=== PATIENT | female | born 1995 | race Caucasian/White ===

== ENCOUNTER 2018-05-23 17:38 | Emergency (ER) | payer OTHER, BC, SELFPAY ==
[2018-05-23 17:39] VITALS: BP 117/60; PULSE 84; RESP 14; TEMP 36.3; O2SAT 100; BMI 29.5
--- NOTE | 2018-05-23 17:49 | ED.VISSUMM ---
- ER Visit Summary Date of Service: 05/23/18 Chief Complaint: Nausea, vomiting History of Present Illness: The patient is a 22 F presents to the emergency department nausea and vomiting. Patient states that she went to the dentist about 4 days ago. She had an ulcer in her mouth. She was started on Tylenol with codeine and Magic mouthwash. She states she has been increasingly nauseated with upper abdominal cramping. She said a few bouts of vomiting. She states that today, she got out of her car quickly, got diaphoretic, tunnel vision, and passed out. She states she does have a history of syncope. She denies any chest pain shortness of breath. She states the pain comes in waves. She denies any heavy vaginal bleeding or other systemic symptoms. Physical Examination: Vital signs reviewed General: Well-nourished, well-developed Head: Normocephalic, atraumatic Eyes: Pupils equal and reactive, extraocular muscles intact Neck, supple, no lymphadenopathy Heart: Regular rate and rhythm Respiratory: No distress, clear bilaterally Abdomen: Soft, nontender, nondistended, no peritoneal signs Back: Nontender Extremities: Nontender, no edema, no cords Skin: Normal color no rash Neuro: Alert and oriented, no focal or lateralizing deficits Test Results: [] Emergency Department Course and Treatment: The patient has a benign abdomen. I do feel that her syncope is vasovagal in nature. She was given IV fluids. Screening labs were obtained were unremarkable. Urine shows no evidence of infection. The patient is . I did discuss this with the patient. She will be started on antiemetics and vitamins. She has no pain in her lower abdomen that makes me concerned for ectopic. She states that she had 2- tests at home 3 days ago. I do feel that this is likely early. She will be given outpatient ENVIRONMENTAL REMEDIATION CONSULTANT follow-up and will be discharged home. Treatment Plan: [] Disposition: Discharge Impression: 1. Hyperemesis 2. This note was generated with [employer] dictation software. It may contain incorrect words, spelling, and punctuation that were not noted in review of the chart prior to signing ED Disposition - Plan for ED Patient: Chief Complaint: Nausea/Vomiting Instructions: ED Preg Morning Sickness, ED Nausea Vomiting Prescriptions: Ondansetron [Zofran Odt] 4 mg PO Q8H PRN PRN #10 tab PRN Reason: Nausea Vits [Prenatabs FA] 1 tab PO DAILY #90 tab Referrals: Marlin Nieves MD [STAFF PHYSICIAN] -
[2018-05-23] MEDS: 0.9% Normal Saline 1,000 ML 1000 ML IV (17:59)
[2018-05-23] MEDS: Ondansetron 4 MG/2 ML Vial IV (17:59)
[2018-05-23 18:18] LABS: Red Blood Cells-Urine 0 SEEN /hpf (0-5)
[2018-05-23 18:20] LABS: Absolute Lymphocyte Count 1.83 X10^3/ul (0.83-4.51); Absolute Neutrophil Count 6.2 X10^3/uL (2.0-7.7); Basophil# 0.02 X10^3/uL; Basophil% 0.2 % (0-1); Eosinophil# 0.16 X10^3/uL; Eosinophils% 1.8 % (0-5); Hematocrit 39.6 % (37-47); Hemoglobin 13.7 g/dl (12.0-15.0); Lymphocyte # 1.83 X10^3/ul (4.0); Lymphocyte % 20.1 % (19-41); Mean Corp Hgb Conc 34.6 g/gl (32-36); Mean Corpuscular Hgb 32.5 pg (27.0-32.0); Mean Corpuscular Volume 93.8 fL (81-99); Mean Platelet Vol. 10.5 fl (6.2-12.0); Monocyte# 0.93 X10^3/uL; Monocyte% 10.2 % (0-10); Neutrophil # 6.15 X10^3/uL (2.7-7.7); Neutrophil % 67.5 % (47-70); Platelet Count 232 K/mm3 (150-450); RBC Distribution Width CV 12.9 % (11.6-14.6); RBC Distribution Width SD 44.4 fl (35.1-43.9); Red Blood Count 4.22 M/mm3 (4.2-5.4); White Blood Count 9.1 K/mm3 (4.4-11.0)
[2018-05-23 18:23] LABS: Differential Indicated SCAN CRITERIA MET; POSITIVE COUNT NO; POSITIVE DIFFERENTIAL NO; POSITIVE MORPHOLOGY YES
[2018-05-23 18:29] LABS: ALB/GLOB Ratio 0.7 RATIO (0.9-2.4); AST(SGOT) 33 U/L (15-37); Alanine Aminotransfer ALT/SGPT 14 U/L (13-56); Albumin, Serum 3.1 g/dL (3.2-5.0); Alkaline Phosphatase 76 U/L (45-117); Anion Gap 6 (5-15); BUN 8 mg/dL (7-18); BUN/Creat Ratio 14.2 RATIO (10-20); Calcium,Total 8.3 mg/dL (8.5-10.1); Chloride 108 mmol/L (98-107); Creatinine, Serum 0.56 mg/dL (0.55-1.02); EST Glomerular Filtration Rate 144 mL/min (>60); Est Glom Filt Rate - Afr Amer 175 mL/min (>60); Estimated Creatinine Clearance 150.01 ml/min; Globulin 4.2 g/dL (2.2-4.2); Glucose 69 mg/dL (74-106); Lipase 111 U/L (73-393); Potassium 4.7 mmol/L (3.5-5.1); Protein, Total 7.3 g/dL (6.4-8.2); Sodium Level 137 mmol/L (136-145)
[2018-05-23 18:34] LABS: Color, Urine Yellow (Yellow); Glucose, Dipstick Normal (Normal); Ketone-Dipstick 5 mg/dl (Negative); Leukocyte Esterase-Dipstick 25 /ul (Negative); Nitrite-Dipstick Negative (Negative); Occult Blood-Urine Negative /ul (Negative); Protein-Dipstick Negative (Negative); Urine Bilirubin Dipstick Negative (Negative); Urine Clarity Sl. Cloudy (Clear); Urine Urobilinogen Normal (Normal)
[2018-05-23 18:38] LABS: Internal QC Validated? YES +Cl - CLEAR BKGD; Pregnancy, Urine Positive Negative
--- NOTE | 2018-05-23 18:38 | ED.RN ---
pos preg called from the lab dr kidd
[2018-05-23 18:43] LABS: Anisocytosis RARE; Macrocytosis RARE; Platelet Estimate ADEQUATE (ADEQ)
[2018-05-23 18:53] LABS: Bacteria RARE /hpf (None Seen); Mucous, Urine RARE /hpf (<or=2+); Squamous Epithelial Cells - UA 5-10 SEEN /hpf (5-10); White Blood Cells 0-5 SEEN /hpf (0-5)
[2018-05-23 19:22] VITALS: BP 123/68; PULSE 73; RESP 16; O2SAT 100
[2018-05-24 11:06] LABS: Pathologist Review Reviewed
== END 2018-05-23 19:23 | disposition home or self-care (01) ==
LOC: ED 18:42
PROVIDERS: Emergency Provider Emergency Medicine; Family Provider Pediatrics; PCP Pediatrics
DX: O26.899 Other specified pregnancy related conditions, unspecified trimester (principal); R11.2 Nausea with vomiting, unspecified; R10.10 Upper abdominal pain, unspecified; O99.89 Other specified diseases and conditions complicating pregnancy, childbirth and the puerperium; R55 Syncope and collapse; O99.330 Smoking (tobacco) complicating pregnancy, unspecified trimester; F17.200 Nicotine dependence, unspecified, uncomplicated; Z3A.00 Weeks of gestation of pregnancy not specified
CPT/HCPCS: 80053; 81001; 81025; 83690; 85025; 96361; 96374; 99284; J7030; J2405

== ENCOUNTER → 2018-06-04 10:44 | Outpatient (CLI) | payer OTHER, BC, SELFPAY ==
[2018-06-04 15:35] LABS: Chlamydia Trachomatis by PCR Negative (Negative); Neisserai gonorrhoeae by PCR Negative (Negative); Probe Check PASS; Sample Adequacy Control PASS; Specimen Processing Control PASS
[2018-06-07 16:28] LABS: HPV Reflexed? NOT INDICATED
== END ==
PROVIDERS: Visit Provider Obstetrics & Gynecology
DX: Z12.4 Encounter for screening for malignant neoplasm of cervix (principal); Z11.3 Encounter for screening for infections with a predominantly sexual mode of transmission
CPT/HCPCS: 87491; 87591; 88175; G0145

== ENCOUNTER → 2018-07-08 11:01 | Outpatient (CLI) | payer OTHER, BC, SELFPAY ==
[2018-07-08 12:22] LABS: Absolute Lymphocyte Count 2.53 X10^3/ul (0.83-4.51); Absolute Neutrophil Count 5.7 X10^3/uL (2.0-7.7); Basophil# 0.02 X10^3/uL; Basophil% 0.2 % (0-1); Eosinophils% 2.2 % (0-5); Hematocrit 36.3 % (37-47); Hemoglobin 12.2 g/dl (12.0-15.0); Lymphocyte # 2.53 X10^3/ul (4.0); Lymphocyte % 27.8 % (19-41); Mean Corp Hgb Conc 33.6 g/gl (32-36); Mean Corpuscular Hgb 31.5 pg (27.0-32.0); Mean Corpuscular Volume 93.8 fL (81-99); Mean Platelet Vol. 10.2 fl (6.2-12.0); Monocyte# 0.63 X10^3/uL; Monocyte% 6.9 % (0-10); Neutrophil % 62.8 % (47-70); Platelet Count 241 K/mm3 (150-450); RBC Distribution Width CV 13.3 % (11.6-14.6); RBC Distribution Width SD 45.5 fl (35.1-43.9); Red Blood Count 3.87 M/mm3 (4.2-5.4); White Blood Count 9.1 K/mm3 (4.4-11.0)
[2018-07-08 12:25] LABS: POSITIVE COUNT NO; POSITIVE DIFFERENTIAL NO; POSITIVE MORPHOLOGY NO
[2018-07-08 12:26] LABS: Color, Urine Yellow (Yellow); Glucose, Dipstick Normal (Normal); Ketone-Dipstick Negative (Negative); Leukocyte Esterase-Dipstick 500 /ul (Negative); Nitrite-Dipstick Negative (Negative); Occult Blood-Urine Negative /ul (Negative); Protein-Dipstick Negative (Negative); Urine Bilirubin Dipstick Negative (Negative); Urine Clarity Sl. Cloudy (Clear); Urine Urobilinogen Normal (Normal)
[2018-07-08 12:27] LABS: Amphetamine Urine VISTA NEGATIVE (<1000 ng/mL); Barbiturate Urine VISTA NEGATIVE (< 200 ng/mL); Benzodiazepine Urine VISTA NEGATIVE (< 200 ng/mL); Cocaine Urine VISTA NEGATIVE (< 300 ng/mL); Ecstacy Urine VISTA NEGATIVE (< 500 ng/mL); Methadone Urine VISTA NEGATIVE (< 300 ng/mL); PCP Urine VISTA NEGATIVE (< 25 ng/mL); THC Urine VISTA POSITIVE (< 50 ng/mL); Vista UDS pH Range 7
[2018-07-08 12:57] LABS: Thyroid Stim Hormone (TSH) 2.13 uIU/mL (0.358-3.74)
[2018-07-08 13:24] LABS: HIV - WCH Non-Reactive (Nonreactive); Rubella IgG 103.2 IU/mL
[2018-07-09 16:47] LABS: HEPATITIS B SURFACE AG Negative (Negative); Hep C Antibodies <0.1 s/co ratio (0.0-0.9); V-Zoster IgG (Immunity) < 135 index (Immune >165); V-Zoster Virus Acute IgM < 0.91 index (0.00-0.90)
[2018-07-12 07:02] LABS: Prenatal RPR NONREACTIVE (NONREACTIVE)
== END ==
PROVIDERS: Visit Provider Obstetrics & Gynecology
DX: Z34.82 Encounter for supervision of other normal pregnancy, second trimester (principal)
CPT/HCPCS: 36415; 80307; 81002; 84443; 85025; 86703; 86762; 86787; 86803; 87340

== ENCOUNTER 2018-08-03 12:13 | Emergency (ER) | payer OTHER, BC, SELFPAY ==
[2018-08-03 12:15] VITALS: BP 125/69; PULSE 94; RESP 16; TEMP 36.6; O2SAT 99; BMI 31.1
[2018-08-03] MEDS: Ondansetron 4 MG/2 ML Vial IV (13:26)
[2018-08-03 13:36] LABS: Bacteria 0 SEEN /hpf (None Seen); Mucous, Urine 0 SEEN /hpf (<or=2+); Red Blood Cells-Urine 0 SEEN /hpf (0-5); White Blood Cells 0 SEEN /hpf (0-5)
[2018-08-03 13:39] LABS: Color, Urine Yellow (Yellow); Glucose, Dipstick Normal (Normal); Ketone-Dipstick Negative (Negative); Leukocyte Esterase-Dipstick Negative /ul (Negative); Nitrite-Dipstick Negative (Negative); Occult Blood-Urine Negative /ul (Negative); Protein-Dipstick Negative (Negative); Specific Gravity, Urine 1.015 (1.002-1.030); Urine Bilirubin Dipstick Negative (Negative); Urine Clarity Sl. Cloudy (Clear); Urine Urobilinogen Normal (Normal)
[2018-08-03 13:43] LABS: Absolute Lymphocyte Count 1.45 X10^3/ul (0.83-4.51); Absolute Neutrophil Count 4.6 X10^3/uL (2.0-7.7); Basophil# 0.02 X10^3/uL; Basophil% 0.3 % (0-1); Eosinophil# 0.12 X10^3/uL; Eosinophils% 1.8 % (0-5); Hematocrit 33.4 % (37-47); Hemoglobin 11.5 g/dl (12.0-15.0); Lymphocyte # 1.45 X10^3/ul (4.0); Lymphocyte % 21.2 % (19-41); Mean Corp Hgb Conc 34.4 g/gl (32-36); Mean Corpuscular Hgb 32.6 pg (27.0-32.0); Mean Corpuscular Volume 94.6 fL (81-99); Mean Platelet Vol. 9.6 fl (6.2-12.0); Monocyte# 0.61 X10^3/uL; Monocyte% 8.9 % (0-10); Neutrophil # 4.63 X10^3/uL (2.7-7.7); Neutrophil % 67.5 % (47-70); POSITIVE COUNT NO; POSITIVE DIFFERENTIAL NO; POSITIVE MORPHOLOGY NO; Platelet Count 212 K/mm3 (150-450); RBC Distribution Width CV 12.9 % (11.6-14.6); Red Blood Count 3.53 M/mm3 (4.2-5.4); White Blood Count 6.9 K/mm3 (4.4-11.0)
[2018-08-03 13:45] LABS: Amorphous Sediment 2+; Squamous Epithelial Cells - UA 0-5 SEEN /hpf (5-10)
[2018-08-03 13:52] LABS: Anion Gap 7 (5-15); BUN 6 mg/dL (7-18); BUN/Creat Ratio 13.8 RATIO (10-20); Calcium,Total 8.3 mg/dL (8.5-10.1); Chloride 109 mmol/L (98-107); Creatinine, Serum 0.43 mg/dL (0.55-1.02); EST Glomerular Filtration Rate 195 mL/min (>60); Est Glom Filt Rate - Afr Amer 236 mL/min (>60); Estimated Creatinine Clearance 193.74 ml/min; Glucose 77 mg/dL (74-106); Potassium 3.6 mmol/L (3.5-5.1); Sodium Level 139 mmol/L (136-145)
--- NOTE | 2018-08-03 14:19 | ED.DEP ---
ED Disposition - Plan for ED Patient: Chief Complaint: Cold Sx Instructions: ED Upper Resp Infec No Abx Tx Prescriptions: Metoclopramide [Reglan] 10 mg PO 4X/DAY PRN #20 tab PRN Reason: Headache Referrals: Care Physician,No Primary [Primary Care Provider] - 3-5 Days
--- NOTE | 2018-08-03 14:23 | ED.DCSUM_ITS ---
- ER Visit Summary Date of Service: 08/03/18 Chief Complaint: [Sore throat and congestion] History of Present Illness: The patient is a 23 F [started with symptoms about a week ago. Patient denies any real shortness of breath. Patient had low-grade fevers up to 100.4. Patient at times will have some white phlegm with her cough. Patient is 18 weeks . Patient states she has been vomiting but she cannot tell if it is just her hyperemesis related to the . Patient denies any diarrhea. Patient thought perhaps she was dehydrated. She denies any sick contacts.] Physical Examination: [HEENT-PERRLA, EOMI. Cranial nerves II through XII grossly intact. TMs clear. Mucous membranes moist. No adenopathy. Mild pharyngeal erythema. No exudates. Uvula midline with no trismus. Cardiovascular-regular rate and rhythm without murmur or ectopy Lungs-clear to auscultation, chest wall stable without crepitus or subcu emphysema Abdomen-normoactive bowel sounds, soft, nontender, no rebound or rigidity, no peritoneal signs. Extremities-intact ?4, normal range of motion, normal pulses, atraumatic] Test Results: [CBC with differential and was normal. Chemistries were normal. Urinalysis was normal. Influenza was negative and strep screen was negative.] Emergency Department Course and Treatment: [Patient received a liter normal same fluid bolus and given Zofran 4 mill grams IV.] Treatment Plan: [Patient states that Zofran does not work for her very well in the past that she would like something different for out write her prescription for Reglan.] Disposition: [Discharged home in stable condition] Impression: [Viral URI Hyperemesis gravidarum] This note was generated with [employer] dictation software. It may contain incorrect words, spelling, and punctuation that were not noted in review of the chart prior to signing ED Disposition - Plan for ED Patient: Chief Complaint: Cold Sx Instructions: ED Upper Resp Infec No Abx Tx Prescriptions: Metoclopramide [Reglan] 10 mg PO 4X/DAY PRN #20 tab PRN Reason: Headache Referrals: Care Physician,No Primary [Primary Care Provider] - 3-5 Days
[2018-08-03 14:42] VITALS: BP 126/61; PULSE 81; RESP 17; O2SAT 100
--- NOTE | 2018-08-03 14:42 | ED.RN ---
IV DC'ED, CATHETER INTACT, SMALL GAUZE DRESSING PLACED. DISCHARGE INSTRUCTIONS GIVEN TO AND REVIEWED WITH PATIENT, PATIENT DENIES QUESTIONS OR CONCERNS AND VOICES UNDERSTANDING OF DISCHARGE INSTRUCTIONS. PT AMBULATES OUT OF ROOM WITHOUT DIFFICULTY.
== END 2018-08-03 14:44 | disposition home or self-care (01) ==
LOC: ED 13:24
PROVIDERS: Emergency Provider Emergency Medicine
DX: O99.89 Other specified diseases and conditions complicating pregnancy, childbirth and the puerperium (principal); J06.9 Acute upper respiratory infection, unspecified; O21.0 Mild hyperemesis gravidarum; O99.332 Smoking (tobacco) complicating pregnancy, second trimester; F17.200 Nicotine dependence, unspecified, uncomplicated; Z3A.18 18 weeks gestation of pregnancy
CPT/HCPCS: 80048; 81001; 85025; 87804; 87880; 96374; 99283; A4216; J2405

== ENCOUNTER 2020-10-18 20:12 | Emergency (ER) | payer OTHER, MEDICAID, SELFPAY ==
[2020-10-18 20:13] VITALS: BP 166/77; PULSE 89; RESP 14; TEMP 37.5; O2SAT 97; BMI 33.5
--- NOTE | 2020-10-18 20:29 | ED.VIS.GEN ---
History of Present Illness Chief Complaint: Laceration Informant: Patient Narrative: 25-year-old female sustained a right thumb distal tip skin avulsion while at work today. Unknown last tetanus but she believes she was around 16 or 17 when she last had 1. She states the bleeding continued for about an hour and is now improved. She notes very sensitive tissue. - Past Medical History (1) Menorrhagia Status: Acute Past Medical History - Allergies and Home Meds Allergies/Adverse Reactions: Allergies No Known Allergies Allergy (Verified 10/18/20 20:15) Primary Care Physician: Care Physician,No Primary [Primary Care Provider] - Past Medical History: None Surgical History: noncontributory Smoking Status: Current every day smoker Drugs: None Review of Systems General: Denies: Chills, Fever, Sweats Eyes: Denies: Visual changes - bilaterally, Diplopia ENT: Denies: Rhinorrhea, Sore throat Cardiovascular: Denies: Chest pain, Palpitations Respiratory: Denies: Dyspnea, Cough, Dyspnea on exertion Gastrointestinal: Denies: Abdominal pain, Nausea, Vomiting, Diarrhea, Melena, Hematochezia Genitourinary: Denies: Dysuria, Hematuria, Frequency Musculoskeletal: Denies: Back pain, Extremity Pain Skin: Reports: Wounds. Denies: Rash Neurological: Denies: Headache, Weakness, Numbness Physical Exam Vital Signs/Narrative: Vital Signs Temp Pulse Resp BP Pulse Ox 10/18/20 20:13 99.5 F H 89 14 166/77 H 97 Inital Vital Signs reviewed: Yes General: Well nourished, Well developed, No Acute Distress Head: Normocephalic, Atraumatic Eyes: Perrl, EOMI ENT: Moist mucous membranes, No rhinorrhea Neck: Supple, Nontender Cardiovascular: Regular rate, Regular rhythm, No murmurs Respiratory: No distress, CTA bilaterally, Chest nontender Abdomen: Soft, Nontender, Nondistended, Normal bowel sounds Back: Nontender, Normal Inspection Extremities: Nontender, No edema Skin: Normal color, No rash, Trauma - There is about 1/2 cm at third centimeter distal right thumb skin avulsion. No active bleeding. No nail trauma. Neurological: Alert, Oriented x3, Cranial nerves II-XII grossly intact, Normal Strength, Normal Sensation Psychological: Normal affect, Normal Mood Diagnostic/Tx/Re-eval - Medical Decision Making Tetanus was updated wound will be cleansed and dressed. Local wound care discussed with patient return if worsening or concerns ED Disposition - Plan for ED Patient: Disposition: Home or Assisted Living Diagnosis: Avulsion of skin of right thumb Instructions: ED Skin Avulsion Referrals: Clinic,[facility] [NON-STAFF] - As Needed
[2020-10-18] MEDS: Diphth,Pertuss(Acell),Tet Vac 0.5 ML Vial IM (20:48)
== END 2020-10-18 21:01 | disposition home or self-care (01) ==
PROVIDERS: Emergency Provider Emergency Medicine
DX: S61.011A Laceration without foreign body of right thumb without damage to nail, initial encounter (principal); X58.XXXA Exposure to other specified factors, initial encounter; Y93.9 Activity, unspecified; Y92.9 Unspecified place or not applicable; F17.200 Nicotine dependence, unspecified, uncomplicated
CPT/HCPCS: 90471; 90715; 99282

== ENCOUNTER 2020-12-19 20:24 | Emergency (ER) | payer OTHER, MEDICAID, SELFPAY ==
[2020-12-19 20:26] VITALS: BP 115/68; PULSE 86; RESP 20; TEMP 36.6; O2SAT 100; BMI 32.2
--- NOTE | 2020-12-19 21:11 | EDS_ITS ---
HPI History of Present Illness Chief Complaint: Abd Pain Narrative Narrative: 25-year-old female presents with concern for nausea, vomiting, diarrhea. States is been present over the past 3 days. States she has been unable to keep any liquids down. States that she just finished a period 3 days ago. Denies any vaginal bleeding or discharge. Patient recently became homeless and has had a large amount of stress in her life. Denies any suicidal or homicidal ideation PFSH PFS Medical History (Updated 12/19/20 @ 22:[address] Santhosh Manrique DO) Anxiety Asthma Depression GERD (gastroesophageal reflux disease) Smoker Substance abuse no medical history Home Medications naproxen 500 mg PO BID #14 tab 12/19/20 [Rx Last Taken Unknown] ondansetron 4 mg PO Q8H PRN PRN #10 tab 12/19/20 [Rx Last Taken Unknown] Allergy/AdvReac Type Severity Reaction Status Date / Time No Known Allergies Allergy Verified 12/19/20 20:25 no significant family history no surgical history Social History Smoking Status: Current every day smoker ROS ROS ED Constitutional Constitutional ED: Denies chills, fever(s) or sweats Eyes Eyes: Denies blurry vision, change in vision or diplopia ENT ENT ED: Denies rhinorrhea or sore throat Cardiovascular Cardiovascular: Denies chest pain, orthopnea, palpitations or racing heartbeat Respiratory/Chest Respiratory/Chest: Denies cough, dyspnea, dyspnea on exertion, orthopnea or sputum Gastrointestinal Gastrointestinal: Reports diarrhea, nausea and vomiting; Denies abdominal pain, constipation or melena Genitourinary Genitourinary ED: Denies dysuria, hematuria or urinary frequency Musculoskeletal Musculoskeletal: Denies arthralgias, myalgias or neck pain Integumentary Denies rash Neurologic Neurologic: Denies headache(s), paresthesias or weakness Psychiatric Psychiatric: Denies anxiety or depression Hematologic/Lymphatic Hematologic/Lymphatic: Denies easy bleeding or easy bruising Allergic/Immunologic Allergic/Immunologic ED: Denies mouth swelling or tongue swelling EXAM Physical Exam Const Vital Signs: 12/19/20 20:26 Temperature 97.8 F Temperature Source Oral Pulse Rate 86 Respiratory Rate 20 H Blood Pressure 115/68 Blood Pressure Mean 83 Pulse Ox 100 Oxygen Delivery Method Room Air Positive well nourished and well developed General Appearance ED: well developed HEENT Reports TM's clear and moist mucous membranes normocephalic and atraumatic Tympanic Membrane ED: Yes TM's clear Eyes PERRL and EOMs intact bilaterally Neck no lymphadenopathy, supple and no JVD Chest Wall inspection of chest normal Resp normal respiratory effort and clear to auscultation bilaterally Cardio regular rate, S1 normal heart sound, S2 normal heart sound and no murmurs Peripheral Pulses: pulses 2+ throughout GI soft to palpation, non-tender and non-distended Back/Spine no CVA tenderness and no thoracic nor lumbar tenderness Extremity normal to inspection General Extremety ED: Negative for edema or tenderness General Extremity: Negative for edema Neuro oriented x3, CN's II-XII intact bilaterally and no sensory deficits noted Sensorium / Orientation: alert Motor Exam: strength 5/5 throughout Psych mental status grossly normal Skin no rashes or lesions noted MDM MDM MDM Narrative Medical decision making narrative: Patient appears well and nontoxic. Soft and benign abdomen. Lab work within normal limits. Urinalysis shows no acute process. No indication for imaging. Patient given Toradol, Zofran, 1 L of normal saline. Patient feeling improved. Will be given primary care follow-up as well a s naproxen and Zofran for home. Asked to return for new or worsening symptoms. Patient agreeable and discharged home in stable condition. Lab Data Attestation: I reviewed the patient's lab results. Labs: Laboratory Results - last 24 hr 12/19/20 12/19/20 12/19/20 21:10 21:10 21:43 WBC 8.1 RBC 4.49 Hgb 14.4 Hct 44.1 MCV 98.2 MCH 32.1 H MCHC 32.7 RDW Std Deviation 45.5 H RDW Coeff of [place] 12.7 Plt Count 252 MPV 10.1 Immature Gran % (Auto) 0.200 Neut % (Auto) 58.2 Lymph % (Auto) 29.8 [place] % (Auto) 7.3 Eos % (Auto) 3.9 Baso % (Auto) 0.6 Absolute Neuts (auto) 4.7 Absolute Lymphs (auto) 2.42 Nucleated RBC % 0 Sodium 139 Potassium 4.2 Chloride 107 Carbon Dioxide 26.0 Anion Gap 6 BUN 12 Creatinine 0.94 Estim Creat Clear Calc 87.14 Est GFR (MDRD) Af Amer 95 Est GFR (MDRD) Non-Af 79 BUN/Creatinine Ratio 12.8 Glucose 83 Calcium 8.8 Total Bilirubin 0.30 AST 9 L ALT 13 Alkaline Phosphatase 86 Total Protein 7.2 Albumin 3.7 Globulin 3.5 Albumin/Globulin Ratio 1.1 Lipase 81 Urine Color Yellow Urine Clarity Sl. Cloudy Urine pH 6.0 Ur Specific [place] 1.025 Urine Protein Negative Urine Glucose (UA) Normal Urine Ketones Negative Urine Occult Blood Negative Urine Nitrite Negative Urine Bilirubin Negative Urine Urobilinogen Normal Ur Leukocyte Esterase 25 H Urine RBC 0 SEEN Urine WBC 0-5 SEEN Ur Squamous Epith Cells 0-5 SEEN Urine Bacteria RARE Urine Mucus 0 SEEN Urine Test 12/19/20 21:43 WBC RBC Hgb Hct MCV MCH MCHC RDW Std Deviation RDW Coeff of [place] Plt Count MPV Immature Gran % (Auto) Neut % (Auto) Lymph % (Auto) [place] % (Auto) Eos % (Auto) Baso % (Auto) Absolute Neuts (auto) Absolute Lymphs (auto) Nucleated RBC % Sodium Potassium Chloride Carbon Dioxide Anion Gap BUN Creatinine Estim Creat Clear Calc Est GFR (MDRD) Af Amer Est GFR (MDRD) Non-Af BUN/Creatinine Ratio Glucose Calcium Total Bilirubin AST ALT Alkaline Phosphatase Total Protein Albumin Globulin Albumin/Globulin Ratio Lipase Urine Color Urine Clarity Urine pH Ur Specific [place] Urine Protein Urine Glucose (UA) Urine Ketones Urine Occult Blood Urine Nitrite Urine Bilirubin Urine Urobilinogen Ur Leukocyte Esterase Urine RBC Urine WBC Ur Squamous Epith Cells Urine Bacteria Urine Mucus Urine Test Negative Discharge Plan Triage Chief Complaint: Abd Pain ED Provider: Santhosh Manrique Dx/Rx/DC Orders Clinical Impression: Abdominal pain Instructions: ED Abdominal Pain Unkn Cause Fem Prescriptions: New ondansetron 4 mg tablet,disintegrating 4 mg PO Q8H PRN PRN (Reason: Nausea) Qty: 10 RF: 0 naproxen 500 mg tablet 500 mg PO BID Qty: 14 RF: 0 Primary Care Provider: Care Physician,No Primary Referrals: Ayana Fairchild DO [STAFF PHYSICIAN] - 3-5 Days Care Physician,No Primary [Primary Care Provider] - Disposition Disposition: Home, self care
[2020-12-19 21:14] LABS: Absolute Lymphocyte Count 2.42 X10^3/uL (0.83-4.51); Absolute Neutrophil Count 4.7 X10^3/uL (2.0-7.7); Basophil# 0.05 X10^3/uL; Basophil% 0.6 % (0-1); Eosinophil# 0.32 X10^3/uL; Eosinophils% 3.9 % (0-5); Hematocrit 44.1 % (37-47); Hemoglobin 14.4 g/dL (12.0-15.0); Lymphocyte # 2.42 X10^3/ul (0.83-4.51); Lymphocyte % 29.8 % (19-41); Mean Corp Hgb Conc 32.7 g/dL (32-36); Mean Corpuscular Hgb 32.1 pg (27.0-32.0); Mean Corpuscular Volume 98.2 fL (81-99); Mean Platelet Vol. 10.1 fl (6.2-12.0); Monocyte# 0.59 X10^3/uL; Monocyte% 7.3 % (0-10); NRBC Flagged by Analyzer 0 % (0-5); Neutrophil # 4.73 X10^3/uL (2.7-7.7); Neutrophil % 58.2 % (47-70); Platelet Count 252 K/mm3 (150-450); RBC Distribution Width CV 12.7 % (11.6-14.6); RBC Distribution Width SD 45.5 fl (35.1-43.9); Red Blood Count 4.49 M/mm3 (4.2-5.4); White Blood Count 8.1 K/mm3 (4.4-11.0)
[2020-12-19 21:30] LABS: ALB/GLOB Ratio 1.1 RATIO (0.9-2.4); AST(SGOT) 9 U/L (15-37); Alanine Aminotransfer ALT/SGPT 13 U/L (13-56); Albumin, Serum 3.7 g/dL (3.2-5.0); Alkaline Phosphatase 86 U/L (45-117); Anion Gap 6 (5-15); BUN 12 mg/dL (7-18); BUN/Creat Ratio 12.8 RATIO (10-20); Calcium,Total 8.8 mg/dL (8.5-10.1); Chloride 107 mmol/L (98-107); Creatinine, Serum 0.94 mg/dL (0.55-1.02); EST Glomerular Filtration Rate 79 mL/min (>60); Est Glom Filt Rate - Afr Amer 95 mL/min (>60); Estimated Creatinine Clearance 87.14 ml/min; Globulin 3.5 g/dL (2.2-4.2); Glucose 83 mg/dL (74-106); Lipase 81 U/L (73-393); Potassium 4.2 mmol/L (3.5-5.1); Protein, Total 7.2 g/dL (6.4-8.2); Sodium Level 139 mmol/L (136-145)
[2020-12-19] MEDS: 0.9% Normal Saline 1,000 ML 1000 ML IV (21:40)
[2020-12-19] MEDS: Ketorolac 15 MG/ML Vial IV (21:41)
[2020-12-19] MEDS: Ondansetron 4 MG/2 ML Vial IV (21:41)
[2020-12-19 21:47] LABS: Mucous, Urine 0 SEEN /hpf (<or=2+); Red Blood Cells-Urine 0 SEEN /hpf (0-5)
[2020-12-19 21:49] LABS: Color, Urine Yellow (Yellow); Glucose, Dipstick Normal (Normal); Ketone-Dipstick Negative (Negative); Leukocyte Esterase-Dipstick 25 /ul (Negative); Nitrite-Dipstick Negative (Negative); Occult Blood-Urine Negative /ul (Negative); Protein-Dipstick Negative (Negative); Specific Gravity, Urine 1.025 (1.002-1.030); Urine Bilirubin Dipstick Negative (Negative); Urine Clarity Sl. Cloudy (Clear); Urine Urobilinogen Normal (Normal)
[2020-12-19 21:52] LABS: Internal QC Validated? YES +Cl - CLEAR BKGD; Pregnancy, Urine Negative Negative
[2020-12-19 21:56] LABS: Bacteria RARE /hpf (None Seen); Squamous Epithelial Cells - UA 0-5 SEEN /hpf (5-10); White Blood Cells 0-5 SEEN /hpf (0-5)
== END 2020-12-19 22:29 | disposition home or self-care (01) ==
PROVIDERS: Emergency Provider Emergency Medicine
DX: R10.9 Unspecified abdominal pain (principal); R11.2 Nausea with vomiting, unspecified; R19.7 Diarrhea, unspecified; K21.9 Gastro-esophageal reflux disease without esophagitis; J45.909 Unspecified asthma, uncomplicated; F17.200 Nicotine dependence, unspecified, uncomplicated; Z59.0 Homelessness
CPT/HCPCS: 80053; 81001; 81025; 83690; 85025; 96361; 96374; 96375; 99285; J7030; A4216; J2405

== ENCOUNTER 2021-02-02 15:22 | Emergency (ER) | payer OTHER, MEDICAID, SELFPAY ==
[2021-02-02 15:23] VITALS: BP 146/85; PULSE 96; RESP 14; TEMP 36.4; O2SAT 100; BMI 32.0
[2021-02-02 15:40] VITALS: BP 129/81; PULSE 66; RESP 15; O2SAT 98
--- NOTE | 2021-02-02 16:07 | RAD_ITS ---
STUDY: X-RAY - RIGHT KNEE REASON FOR EXAM: Female, 25 years old. Injury/Pain TECHNIQUE: 2 view(s) of the knee. COMPARISON: None. FINDINGS: Normal visualized distal femur. Normal visualized proximal tibia and fibula. Normal proximal tibiofibular articulation. Normal medial femorotibial compartment. Normal lateral femorotibial compartment. Normal patellofemoral articulation. There is no demonstrated joint effusion. The soft tissue structures are unremarkable. RAD/Knee 1 or 2 Views IMPRESSION: No demonstrated fracture or malalignment. Electronically Signed: Samuel Jerome MD ([place]) at 8:23 EDT , Service support ,
--- NOTE | 2021-02-02 16:07 | RAD_ITS ---
STUDY: X-RAY - RIGHT ANKLE REASON FOR EXAM: Female, 25 years old. Right leg pinned between car and house. TECHNIQUE: 3 view(s) of the ankle. COMPARISON: Right tibia-fibula, 02/02/2021. FINDINGS: Normal visualized distal tibia and fibula. Normal medial and lateral malleoli. Normal tibiotalar articulation and ankle mortise. Normal visualized talus and calcaneus. The visualized subtalar, talonavicular, calcaneocuboid and tarsal articulations are normal. The soft tissue structures are unremarkable. RAD/Ankle min 3 Views IMPRESSION: No acute fracture or dislocation. Electronically Signed: Peryr Tolliver DO at 17:10 EDT Tel [phone], Service support ,
--- NOTE | 2021-02-02 16:07 | RAD_ITS ---
STUDY: X-RAY - LEFT ANKLE REASON FOR EXAM: Female, 25 years old. Injury. Pain. Leg pain between her car and house. TECHNIQUE: 3 view(s) of the ankle. COMPARISON: None. FINDINGS: Normal visualized distal tibia and fibula. Normal medial and lateral malleoli. Normal tibiotalar articulation and ankle mortise. Normal visualized talus and calcaneus. The visualized subtalar, talonavicular, calcaneocuboid and tarsal articulations are normal. The soft tissue structures are unremarkable. RAD/Ankle min 3 Views IMPRESSION: No acute fracture or dislocation. Electronically Signed: Perry Tolliver DO at 17:08 EDT Tel [phone], Service support ,
--- NOTE | 2021-02-02 16:07 | RAD_ITS ---
STUDY: X-RAY - RIGHT FEMUR REASON FOR STUDY: Female, 25 years old. Injury and pain. Right leg pinned between car and house. TECHNIQUE: AP and lateral view(s) of the femur. COMPARISON: None. FINDINGS: Normal visualized femur. No fracture or dislocation. The knee and hip appear grossly normal. Normal visualized soft tissue structure. RAD/Femur Min 2 Views IMPRESSION: Normal x-ray examination of the right femur. Electronically Signed: Perry Tolliver DO at 17:10 EDT Tel [phone], Service support ,
--- NOTE | 2021-02-02 16:07 | RAD_ITS ---
STUDY: X-RAY - RIGHT TIBIA AND FIBULA REASON FOR EXAM: Female, 25 years old. Injury. Pain. Right leg pain between car and house. TECHNIQUE: AP and lateral view(s) of the tibia and fibula were obtained. COMPARISON: Right ankle and right femur, 02/02/2021. FINDINGS: Normal visualized tibia. Normal visualized fibula. There is no acute fracture, dislocation or destructive osseous pathology. The knee and ankle are intact. The soft tissue structures are unremarkable. RAD/Tibia & Fibula 2 Views IMPRESSION: Normal x-ray examination of the right tibia and fibula. Electronically Signed: Perry Tolliver DO at 17:11 EDT Tel [phone], Service support ,
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
[2021-02-02] MEDS: Morphine 4 MG/ML Syringe IV (16:11)
[2021-02-02] MEDS: Ketorolac 15 MG/ML Vial IV (18:15)
[2021-02-02] MEDS: HYDROcodone Bitartrate/Apap 5/325 Tablet PO (18:15)
== END 2021-02-02 18:30 | disposition home or self-care (01) ==
PROVIDERS: Emergency Provider Emergency Medicine
DX: S87.81XA Crushing injury of right lower leg, initial encounter (principal); S90.812A Abrasion, left foot, initial encounter; W23.0XXA Caught, crushed, jammed, or pinched between moving objects, initial encounter; Y93.9 Activity, unspecified; Y92.9 Unspecified place or not applicable; J45.909 Unspecified asthma, uncomplicated; F17.210 Nicotine dependence, cigarettes, uncomplicated
CPT/HCPCS: 73552; 73560; 73590; 73610; 96374; 96375; 99284

== ENCOUNTER 2021-05-08 15:08 | Emergency (ER) | payer OTHER, MEDICAID, SELFPAY ==
[2021-05-08] VITALS (7 sets, daily range): BP systolic 135–160; BP diastolic 88–122; PULSE 96–109; RESP 16–18; TEMP 36.6–36.7; O2SAT 97–98; BMI 31.4
--- NOTE | 2021-05-08 15:22 | EKG12_ITS ---
Test Reason : ALT LOC Blood Pressure : / mmHG Vent. Rate : 084 BPM Atrial Rate : 084 BPM P-R Int : 138 ms QRS Dur : 084 ms QT Int : 348 ms P-R-T Axes : -18 019 031 degrees QTc Int : 411 ms Normal sinus rhythm Septal infarct , age undetermined Abnormal ECG Confirmed by NOEL PEGUERO, CHARLI ([id number]), business editor GUILLAUME SPENCER ([id number]) on 05/11/2021 9:59:03 AM Referred By: RANJAN Confirmed By:CHARLI COHEN MD
--- NOTE | 2021-05-08 15:33 | EX.ED.DYSGE1 ---
HPI History of Present Illness Chief Complaint: Mental Health Narrative Narrative: 25-year-old female presenting with confusion and altered mental status. She states that the last thing she can remember is her father and her sister finding her car. She was supposed to work today She states she was asleep at [employer]. she was post to work today. Patient states that and states she has been depressed about her sister she has some anxiety and feels like her chest is tight. She also complains of depression passing away. She states she has a suicide history of suicidal ideation but states he is never had a plan and she does not have a plan today. She does admit to feeling suicidal. Patient denies any drug or alcohol abuse. Patient states that she saw her father and her sister at the door when she was brought in by EMS. She states she does not have any physical health problems. She states that she is not on any medication for her anxiety history or for depression. [facility] Medical History Anxiety Asthma Depression GERD (gastroesophageal reflux disease) Smoker Substance abuse Home Medications NK 05/08/21 [History Last Taken Unknown] Allergy/AdvReac Type Severity Reaction Status Date / Time No Known Allergies Allergy Verified 05/08/21 15:13 Social History Smoking Status: Current every day smoker tobacco type: cigarettes ROS ROS ED Constitutional Constitutional ED: Denies chills or fever(s) Eyes Eyes: Denies blurry vision or diplopia ENT ENT ED: Denies rhinorrhea or sore throat Cardiovascular Cardiovascular: Reports chest pain and palpitations Respiratory/Chest Respiratory/Chest: Denies cough or dyspnea Gastrointestinal Gastrointestinal: Denies abdominal pain, nausea or vomiting Genitourinary Genitourinary ED: Denies dysuria or hematuria Musculoskeletal Musculoskeletal: Denies arthralgias or myalgias Integumentary Denies Abrasions or rash Neurologic Neurologic: Denies headache(s) or paresthesias Psychiatric Psychiatric: Reports anxiety, depression and suicidal thoughts EXAM Physical Exam Const Vital Signs: 05/08/21 15:08 05/08/21 15:27 05/08/21 16:49 Temperature 98 F Temperature Source Temporal Pulse Rate 109 H Respiratory Rate 18 16 16 Blood Pressure 135/122 H Blood Pressure Mean 126 Pulse Ox 98 Oxygen Delivery Method Room Air 05/08/21 17:00 05/08/21 18:00 05/08/21 22:05 Temperature Temperature Source Pulse Rate 96 Respiratory Rate 16 16 18 Blood Pressure 160/88 H Blood Pressure Mean 112 Pulse Ox 97 Oxygen Delivery Method Room Air 05/08/21 23:12 Temperature 98.0 F Temperature Source Pulse Rate 96 Respiratory Rate 18 Blood Pressure 160/88 H Blood Pressure Mean 112 Pulse Ox 97 Oxygen Delivery Method Positive unkempt General Appearance ED: unkempt; Negative for pallor HEENT Reports normocephalic, head/scalp atraumatic and moist mucous membranes Eyes PERRL and EOMs intact bilaterally Neck no lymphadenopathy and supple Chest Wall inspection of chest normal and palpation of chest normal Resp normal respiratory effort and clear to auscultation bilaterally Auscultation: Negative for rales, rhonchi or wheezes Cardio regular rate and regular rhythm GI normal to inspection, nondistended, normoactive bowel sounds and non-distended Auscultation: normoactive bowel sounds Palpation: soft Narrative: Deferred Back/Spine General Back: CVA tenderness Extremity normal to inspection General Extremety ED: Yes edema and tenderness General Extremity: edema Neuro oriented x3 and CN's II-XII intact bilaterally Sensorium / Orientation: alert Motor Exam: strength 5/5 throughout Psych Appearance: unkempt Activity / Motor Behavior: hyperactive Mood & Affect: anxious and tearful Thought Process: confused Thought Content: suicidality and hallucination(s) Positive for visual Attention / Concentration: attention grossly impaired and concentration grossly impaired Memory / Cognition: memory grossly impaired Skin no rashes or lesions noted and no wounds General Skin Exam: Negative for jaundice or pallor MDM MDM MDM Narrative Medical decision making narrative: Patient presenting with altered mental status and confusion. Appears that she is hallucinating and saw her family at the door. Her dad and sister are not here in the ER. The nurse did speak with her father who stated that he found her driving around and had urged her to hand assembler for puller over. She was wearing a sports bra and stating that she was burning up. EMS was called from the scene. The nursing staff did speak to her boyfriend who stated that she had not been home all night. Patient is complained of anxiety and chest discomfort. EKG on my interpretation shows a normal sinus rhythm at 84 bpm without sign of ischemic change. Chest x-ray my interpretation shows no acute cardiopulmonary process and the radiologist agree. Patient's blood work is normal. Urine drug screen and EtOH are negative. salicylates and acetaminophen are within normal limits. Given patient's symptoms and being up all night as well as confusion and hallucinations I do have concern for sidney. I do believe that she would likely benefit from inpatient hospitalization as she is expressing some suicidal ideation and I do not believe I can make a safe discharge plan for her. She was evaluated by crisis and they do agree. Patient did require Ativan x2 in the ED to keep her calm as she is very anxious. In regards to her chest discomfort I do not believe is cardiac in nature and her troponin is negative. I do not believe she needs a delta troponin as she has no history of cardiac disease. Impression: 1. Chest pain noncardiac 2. Visual hallucinations 3. Sidney 4. Altered mental status 5. Suicidal ideation Lab Data Attestation: I reviewed the patient's lab results. Labs: Laboratory Results - last 24 hr 05/08/21 05/08/21 05/08/21 15:42 15:42 15:42 WBC 9.2 RBC 4.94 Hgb 16.2 H Hct 47.1 H MCV 95.3 MCH 32.8 H MCHC 34.4 RDW Std Deviation 43.4 RDW Coeff of [place] 12.3 Plt Count 280 MPV 10.0 Immature Gran % (Auto) 0.300 Neut % (Auto) 58.2 Lymph % (Auto) 29.5 [place] % (Auto) 10.2 H Eos % (Auto) 0.9 Baso % (Auto) 0.9 Absolute Neuts (auto) 5.3 Absolute Lymphs (auto) 2.70 Nucleated RBC % 0 Sodium 137 Potassium 3.4 L Chloride 103 Carbon Dioxide 25.0 Anion Gap 9 BUN 6 L Creatinine 0.80 Estim Creat Clear Calc 98.41 Est GFR (MDRD) Af Amer 114 Est GFR (MDRD) Non-Af 94 BUN/Creatinine Ratio 7.5 L Glucose 95 Calcium 9.5 Total Bilirubin 0.50 AST 17 ALT 18 Alkaline Phosphatase 99 Troponin I High Sens Total Protein 8.9 H Albumin 4.4 Globulin 4.5 H Albumin/Globulin Ratio 1.0 Serum , Qual Urine Color Urine Clarity Urine pH Ur Specific [place] Urine Protein Urine Glucose (UA) Urine Ketones Urine Occult Blood Urine Nitrite Urine Bilirubin Urine Urobilinogen Ur Leukocyte Esterase Urine RBC Urine WBC Ur Squamous Epith Cells Urine Bacteria Urine Mucus Salicylates Urine Opiates Screen Urine Methadone Screen Acetaminophen Ur Barbiturates Screen Ur Phencyclidine Scrn Ur Amphetamines Screen U Methamphetamin-MDMA U Benzodiazepines Scrn Urine Cocaine Screen U Cannabinoids Screen Ur Drug Screen Comment Ethyl Alcohol 4.0 05/08/21 05/08/21 05/08/21 15:42 15:42 15:42 WBC RBC Hgb Hct MCV MCH MCHC RDW Std Deviation RDW Coeff of [place] Plt Count MPV Immature Gran % (Auto) Neut % (Auto) Lymph % (Auto) [place] % (Auto) Eos % (Auto) Baso % (Auto) Absolute Neuts (auto) Absolute Lymphs (auto) Nucleated RBC % Sodium Potassium Chloride Carbon Dioxide Anion Gap BUN Creatinine Estim Creat Clear Calc Est GFR (MDRD) Af Amer Est GFR (MDRD) Non-Af BUN/Creatinine Ratio Glucose Calcium Total Bilirubin AST ALT Alkaline Phosphatase Troponin I High Sens 4 Total Protein Albumin Globulin Albumin/Globulin Ratio Serum , Qual NEGATIVE Urine Color Urine Clarity Urine pH Ur Specific [place] Urine Protein Urine Glucose (UA) Urine Ketones Urine Occult Blood Urine Nitrite Urine Bilirubin Urine Urobilinogen Ur Leukocyte Esterase Urine RBC Urine WBC Ur Squamous Epith Cells Urine Bacteria Urine Mucus Salicylates 3.8 Urine Opiates Screen Urine Methadone Screen Acetaminophen < 2.0 L Ur Barbiturates Screen Ur Phencyclidine Scrn Ur Amphetamines Screen U Methamphetamin-MDMA U Benzodiazepines Scrn Urine Cocaine Screen U Cannabinoids Screen Ur Drug Screen Comment Ethyl Alcohol 05/08/21 05/08/21 16:46 16:46 WBC RBC Hgb Hct MCV MCH MCHC RDW Std Deviation RDW Coeff of [place] Plt Count MPV Immature Gran % (Auto) Neut % (Auto) Lymph % (Auto) [place] % (Auto) Eos % (Auto) Baso % (Auto) Absolute Neuts (auto) Absolute Lymphs (auto) Nucleated RBC % Sodium Potassium Chloride Carbon Dioxide Anion Gap BUN Creatinine Estim Creat Clear Calc Est GFR (MDRD) Af Amer Est GFR (MDRD) Non-Af BUN/Creatinine Ratio Glucose Calcium Total Bilirubin AST ALT Alkaline Phosphatase Troponin I High Sens Total Protein Albumin Globulin Albumin/Globulin Ratio Serum , Qual Urine Color Straw Urine Clarity Clear Urine pH 6.5 Ur Specific [place] 1.010 Urine Protein Negative Urine Glucose (UA) Normal Urine Ketones Negative Urine Occult Blood Negative Urine Nitrite Negative Urine Bilirubin Negative Urine Urobilinogen Normal Ur Leukocyte Esterase Negative Urine RBC 0 SEEN Urine WBC 0 SEEN Ur Squamous Epith Cells 0-5 SEEN Urine Bacteria 1+ Urine Mucus 0 SEEN Salicylates Urine Opiates Screen NEGATIVE Urine Methadone Screen NEGATIVE Acetaminophen Ur Barbiturates Screen NEGATIVE Ur Phencyclidine Scrn NEGATIVE Ur Amphetamines Screen NEGATIVE U Methamphetamin-MDMA NEGATIVE U Benzodiazepines Scrn NEGATIVE Urine Cocaine Screen NEGATIVE U Cannabinoids Screen NEGATIVE Ur Drug Screen Comment Ethyl Alcohol Radiography Diagnostic Testing: Radiology Impression Chest X-Ray 05/08/21 15:43 IMPRESSION: No acute radiographic abnormalities. Electronically Signed: Haris Fitzgerald MD at 16:24 EDT Tel , Service support , Discharge Plan Triage Chief Complaint: Mental Health Other Complaint: Alt LOC ED Provider: Drew Vargas Dx/Rx/DC Orders Prescriptions: No Action NK RF: 0 Primary Care Provider: Care Physician,No Primary Referrals: Care Physician,No Primary [Primary Care Provider] - Disposition Disposition: Psychiatric Hospital or Unit Discharge Location: [facility] Discharge Date/Time: 05/08/21 23:28
--- NOTE | 2021-05-08 15:33 | ED.RN ---
THIS NURSE SPOKE WITH THE PT FATHER ON THE PHONE ATTEMPTING TO FIND OUT WHAT OCCURRED WHEN HE CALLED . PER THE FATHER, THEY FOUND HER DRIVING AROUND TOWN AND HAD TO FORCE HER TO EXECUTIVE SALES ASSISTANT. SHE WAS DRIVING AROUND IN JUST A SPORTS BRA AND WAS COMPLAINING OF IT BEING VERY HOT AND FEELING SHORT OF BREATH. THE BOYFRIEND, IS ON HIS WAY TO THE HOSPITAL, HAS NOT SEEN HER ALL NIGHT. UNKNOWN WHERE SHE WAS
--- NOTE | 2021-05-08 15:43 | RAD_ITS ---
INDICATION: chest pain EXAMINATION/TECHNIQUE: X-RAY - XR Chest 1 View COMPARISON: 07/25/2011 FINDINGS: The lungs are clear. The cardiomediastinal silhouette is unremarkable. No pleural effusion or pneumothorax. No acute osseous abnormalities. RAD/Chest 1 View (Portable) IMPRESSION: No acute radiographic abnormalities. Electronically Signed: Haris Fitzgerald MD at 16:24 EDT Tel , Service support ,
[2021-05-08 15:52] LABS: Absolute Neutrophil Count 5.3 X10^3/uL (2.0-7.7); Basophil# 0.08 X10^3/uL; Basophil% 0.9 % (0-1); Eosinophil# 0.08 X10^3/uL; Eosinophils% 0.9 % (0-5); Hematocrit 47.1 % (37-47); Hemoglobin 16.2 g/dL (12.0-15.0); Lymphocyte % 29.5 % (19-41); Mean Corp Hgb Conc 34.4 g/dL (32-36); Mean Corpuscular Hgb 32.8 pg (27.0-32.0); Mean Corpuscular Volume 95.3 fL (81-99); Monocyte# 0.93 X10^3/uL; Monocyte% 10.2 % (0-10); NRBC Flagged by Analyzer 0 % (0-5); Neutrophil # 5.33 X10^3/uL (2.7-7.7); Neutrophil % 58.2 % (47-70); Platelet Count 280 K/mm3 (150-450); RBC Distribution Width CV 12.3 % (11.6-14.6); RBC Distribution Width SD 43.4 fl (35.1-43.9); Red Blood Count 4.94 M/mm3 (4.2-5.4); White Blood Count 9.2 K/mm3 (4.4-11.0)
[2021-05-08 16:02] LABS: Internal QC Validated? YES +Cl - CLEAR BKGD; Pregnancy, Serum, hCG Quali. NEGATIVE Negative
[2021-05-08 16:10] LABS: AST(SGOT) 17 U/L (15-37); Alanine Aminotransfer ALT/SGPT 18 U/L (13-56); Albumin, Serum 4.4 g/dL (3.2-5.0); Alkaline Phosphatase 99 U/L (45-117); Anion Gap 9 (5-15); BUN 6 mg/dL (7-18); BUN/Creat Ratio 7.5 RATIO (10-20); Calcium,Total 9.5 mg/dL (8.5-10.1); Chloride 103 mmol/L (98-107); EST Glomerular Filtration Rate 94 mL/min (>60); Est Glom Filt Rate - Afr Amer 114 mL/min (>60); Estimated Creatinine Clearance 98.41 ml/min; Globulin 4.5 g/dL (2.2-4.2); Glucose 95 mg/dL (74-106); Potassium 3.4 mmol/L (3.5-5.1); Protein, Total 8.9 g/dL (6.4-8.2); Sodium Level 137 mmol/L (136-145)
[2021-05-08 16:47] LABS: Acetaminophen (Tylenol) Level < 2.0 ug/mL (10.0-30.0); Salicylate 3.8 mg/dL (2.8-20.0)
[2021-05-08 17:03] LABS: Amphetamine Urine VISTA NEGATIVE (<1000 ng/mL); Barbiturate Urine VISTA NEGATIVE (< 200 ng/mL); Benzodiazepine Urine VISTA NEGATIVE (< 200 ng/mL); Cocaine Urine VISTA NEGATIVE (< 300 ng/mL); Ecstacy Urine VISTA NEGATIVE (< 500 ng/mL); Methadone Urine VISTA NEGATIVE (< 300 ng/mL); PCP Urine VISTA NEGATIVE (< 25 ng/mL); THC Urine VISTA NEGATIVE (< 50 ng/mL); Vista UDS pH Range 6
--- NOTE | 2021-05-08 17:30 | ED.RN ---
Spoke to crisis as pt is medically cleared; states she will be in to evaluate this pt.
[2021-05-08 18:03] LABS: Mucous, Urine 0 SEEN /hpf (<or=2+); Red Blood Cells-Urine 0 SEEN /hpf (0-5); White Blood Cells 0 SEEN /hpf (0-5)
[2021-05-08 18:13] LABS: Color, Urine Straw (Yellow); Glucose, Dipstick Normal (Normal); Ketone-Dipstick Negative (Negative); Leukocyte Esterase-Dipstick Negative /ul (Negative); Nitrite-Dipstick Negative (Negative); Occult Blood-Urine Negative /ul (Negative); Protein-Dipstick Negative (Negative); Urine Bilirubin Dipstick Negative (Negative); Urine Clarity Clear (Clear); Urine Urobilinogen Normal (Normal); Urine pH 6.5 (5.0 - 8.0)
[2021-05-08 18:15] LABS: Bacteria 1+ /hpf (None Seen); Squamous Epithelial Cells - UA 0-5 SEEN /hpf (5-10)
--- NOTE | 2021-05-08 18:51 | ED.RN ---
PER MEDICAL ASSEMBLY, PT NEEDS PLACEMENT.
[2021-05-08] MEDS: Potassium Chloride Oral Tablet 20 MEQ PO (19:47)
[2021-05-08 20:02] LABS: Troponin-I HS 4 pg/mL (3.0-54.0)
--- NOTE | 2021-05-08 21:27 | ED.RN ---
THIS RN VERIFIED WITH [facility] THAT ALL PAPERWORK FAXED WAS RECIEVED
[2021-05-08] MEDS: LORazepam 1 MG Tablet PO ×2 (22:50→23:23)
--- NOTE | 2021-05-08 23:27 | ED.RN ---
alejandro currie made aware of need for 1mg po ativan for the pt.
== END 2021-05-08 23:28 ==
LOC: ED 16:52
PROVIDERS: Emergency Provider Student in an Organized Health Care Education/Training Program
DX: R07.89 Other chest pain (principal); F30.9 Manic episode, unspecified; R44.1 Visual hallucinations; R41.82 Altered mental status, unspecified; R45.851 Suicidal ideations; J45.909 Unspecified asthma, uncomplicated; F17.210 Nicotine dependence, cigarettes, uncomplicated
CPT/HCPCS: 71045; 80053; 80307; 80329; 81001; 82077; 84484; 84703; 85025; 87426; 93005; 99285; G0480

== ENCOUNTER 2021-10-10 11:17 | Outpatient (CLI) | payer OTHER, MEDICAID, SELFPAY ==
[2021-10-10 13:22] LABS: Lithium < 0.20 mmol/L (0.60-1.20)
[2021-10-10 13:30] LABS: ALB/GLOB Ratio 0.9 RATIO (0.9-2.4); AST(SGOT) 15 U/L (15-37); Alanine Aminotransfer ALT/SGPT 22 U/L (13-56); Albumin, Serum 3.6 g/dL (3.2-5.0); Alkaline Phosphatase 88 U/L (45-117); Anion Gap 8 (5-15); BUN 10 mg/dL (7-18); BUN/Creat Ratio 14.6 RATIO (10-20); Calcium,Total 8.6 mg/dL (8.5-10.1); Chloride 104 mmol/L (98-107); Creatinine, Serum 0.69 mg/dL (0.55-1.02); EST Glomerular Filtration Rate 111 mL/min (>60); Est Glom Filt Rate - Afr Amer 135 mL/min (>60); Globulin 3.8 g/dL (2.2-4.2); Glucose 108 mg/dL (74-106); Potassium 4.1 mmol/L (3.5-5.1); Protein, Total 7.4 g/dL (6.4-8.2); Sodium Level 138 mmol/L (136-145); Thyroid Stim Hormone (TSH) 2.41 uIU/mL (0.358-3.74)
== END 2021-10-10 23:59 | disposition home or self-care (01) ==
LOC: LAB 11:19
PROVIDERS: Visit Provider Registered Nurse
DX: F31.9 Bipolar disorder, unspecified (principal); Z79.899 Other long term (current) drug therapy
CPT/HCPCS: 36415; 80053; 80178; 84443

== ENCOUNTER 2022-04-19 18:16 | Emergency (ER) | payer OTHER, MEDICAID, SELFPAY ==
[2022-04-19 18:17] VITALS: BP 117/77; PULSE 75; RESP 14; TEMP 36.8; O2SAT 98; BMI 34.4
--- NOTE | 2022-04-19 19:58 | EDS_ITS ---
HPI History of Present Illness Chief Complaint: Headache Informant: patient Narrative Narrative: Patient presents with headache. She states has been going on for about a week and a half. It started mild. It does wax and wane. Excedrin helps it but it oftentimes comes back. It starts behind her eyes and moves toward the back of her head. Bright lights or loud sounds definitely aggravated. She has had nausea but no vomiting. No fevers chills. No sore throat cough congestion. She has had a history of headaches in her life but never been officially diagnosed with migraines. But she has migraines that run in her remote several family members. She did have some flashing lights and sparkles in her vision early on but not having them now. No weakness. No trauma. This is not the worst headache of her life and was not sudden onset. When she had COVID the headache was much worse than this. She came in today because she went to urgent care and they referred her in for further evaluation. [facility] Medical History Anxiety Asthma Depression GERD (gastroesophageal reflux disease) Smoker Substance abuse Home Medications NK 05/08/21 [History Last Taken Unknown] Allergy/AdvReac Type Severity Reaction Status Date / Time No Known Allergies Allergy Verified 04/19/22 18:17 Social History Smoking Status: Current every day smoker tobacco type: cigarettes ROS ROS ED Constitutional Constitutional ED: Denies chills or fever(s) Eyes Eyes: Reports other Details: He has seen flashing lights. ; Denies change in vision ENT ENT ED: Denies ear pain, rhinorrhea or sore throat Cardiovascular Cardiovascular: Denies chest pain Respiratory/Chest Respiratory/Chest: Denies cough or dyspnea Gastrointestinal Gastrointestinal: Reports nausea; Denies vomiting Genitourinary Genitourinary ED: Denies dysuria or hematuria Musculoskeletal Musculoskeletal: Denies arthralgias, back pain, myalgias or neck pain Integumentary Denies rash Neurologic Neurologic: Reports headache(s); Denies paresthesias or weakness Endocrine Endocrinology: Denies polydipsia or polyuria Hematologic/Lymphatic Hematologic/Lymphatic: Denies easy bleeding or easy bruising Allergic/Immunologic Allergic/Immunologic ED: Denies urticaria EXAM Physical Exam Const Vital Signs: 04/19/22 18:17 04/19/22 21:06 Temperature 98.2 F Temperature Source Temporal Pulse Rate 75 Respiratory Rate 14 16 Blood Pressure 117/77 Blood Pressure Mean 90 Pulse Ox 98 Oxygen Delivery Method Room Air Positive well nourished and well developed General Appearance ED: well developed and NAD; Negative for cyanotic or diaphoretic HEENT Reports moist mucous membranes HEENT Narrative: No facial rash. No temporal artery tenderness. No areas of swelling or trauma. Eyes PERRL and EOMs intact bilaterally Eyes Narrative: Pupils are about 3 and half to 4 mm equal and reactive. There is some photophobia. No limitation of range of motion. No injection. No swelling. No proptosis Neck no lymphadenopathy and no meningeal signs Resp normal respiratory effort and clear to auscultation bilaterally Cardio regular rate and regular rhythm GI non-tender and non-distended Back/Spine no CVA tenderness Extremity normal to inspection Neuro oriented x3 and no sensory deficits noted Sensorium / Orientation: awake and alert; Negative for orientation impaired, lethargic or stuporous Speech: speech normal Psych mental status grossly normal Skin Skin Narrative: No vesicles. Negative Miller sign Lesions: no lesions Rashes: no rashes MDM MDM MDM Narrative Medical decision making narrative: Patient's electrolytes were normal. is negative. CT scan of the head was negative. I rechecked the patient. She was resting. I asked her if she was feeling any better. She stated quite a bit, actually. She has not felt this good in a while. This patient has a family history of migraines. She has been getting recurrent headaches with flashing lights and photophobia. I think this is likely migraines. I think we can get her home. I will refer her to a mat poole. She states she does have an appointment in a month to establish a new physician also. But this will give her options. We discussed reasons to return Lab Data Attestation: I reviewed the patient's lab results. Labs: Laboratory Results - last 24 hr 04/19/22 04/19/22 20:11 20:11 Sodium 139 Potassium 3.8 Chloride 109 H Carbon Dioxide 22.0 Anion Gap 8 BUN 12 Creatinine 0.76 Estim Creat Clear Calc 106.85 Est GFR (MDRD) Af Amer 120 Est GFR (MDRD) Non-Af 99 BUN/Creatinine Ratio 15.8 Glucose 96 Calcium 8.5 Serum , Qual NEGATIVE Radiography Diagnostic Testing: Clinical Impression(s) from Imaging Studies Brain CT 04/19/22 20:25 IMPRESSION: Normal unenhanced CT scan of the brain. Electronically Signed: Vasquez Fuentes MD at 22:24 EDT , Discharge Plan Triage Chief Complaint: Headache ED Provider: Сергей Cano Dx/Rx/DC Orders Clinical Impression: Headache, migraine Instructions: ED Headache Unspecified, ED, Migraine (Classical) Prescriptions: No Action NK Primary Care Provider: Care Physician,No Primary Referrals: Nigel Shah MD [Med Staff - Infrastructure Software Engineer] - 1 Week Care Physician,No Primary [Primary Care Provider] - Disposition Disposition: Home, Self Care
[2022-04-19] MEDS: proCHLORPERazine 10 MG/2 ML Vial IV (20:06)
[2022-04-19] MEDS: 0.9% Normal Saline 1,000 ML 999 ML IV (20:06)
[2022-04-19] MEDS: DiphenhydrAMINE 50 MG/ML Syringe IV (20:06)
--- NOTE | 2022-04-19 20:25 | CT_ITS ---
STUDY: CT BRAIN WITHOUT CONTRAST REASON FOR EXAM: Female, 26 years old. Pain RADIATION DOSAGE (If Supplied By Facility): CTDIvol = ( 44.99 ) mGy, DLP = ( 812.98 ) mGycm TECHNIQUE: Transaxial CT imaging of the brain was performed without administration of intravenous contrast material. Individualized dose optimization techniques were used for this CT. COMPARISON: No relevant priors. FINDINGS: Normal soft tissue structures. Normal calvarium. Normal size ventricles and extra-axial spaces for the patient''s age. Normal white matter tracts of the cerebral hemispheres. Normal basal ganglia and thalami. Normal brainstem. Normal cerebellum. There is no intracranial hemorrhage. There are no findings of an acute ischemic infarction. There is mucosal thickening with retention cyst or polyp of the right maxillary sinus CT/Brain/Head without Contrast IMPRESSION: Normal unenhanced CT scan of the brain. Electronically Signed: Vasquez Fuentes MD at 22:24 EDT ,
[2022-04-19 20:55] LABS: Anion Gap 8 (5-15); BUN 12 mg/dL (7-18); BUN/Creat Ratio 15.8 RATIO (10-20); Calcium,Total 8.5 mg/dL (8.5-10.1); Chloride 109 mmol/L (98-107); Creatinine, Serum 0.76 mg/dL (0.55-1.02); EST Glomerular Filtration Rate 99 mL/min (>60); Est Glom Filt Rate - Afr Amer 120 mL/min (>60); Estimated Creatinine Clearance 106.85 ml/min; Glucose 96 mg/dL (74-106); Potassium 3.8 mmol/L (3.5-5.1); Sodium Level 139 mmol/L (136-145)
[2022-04-19 20:56] LABS: Internal QC Validated? YES +Cl - CLEAR BKGD; Pregnancy, Serum, hCG Quali. NEGATIVE Negative
[2022-04-19 21:06] VITALS: RESP 16
[2022-04-19 22:59] VITALS: PULSE 75; RESP 18; O2SAT 96
== END 2022-04-19 22:59 | disposition home or self-care (01) ==
PROVIDERS: Emergency Provider Emergency Medicine; Visit Provider Emergency Medicine
DX: G43.909 Migraine, unspecified, not intractable, without status migrainosus (principal); F17.210 Nicotine dependence, cigarettes, uncomplicated; Z86.16 Personal history of COVID-19
CPT/HCPCS: 70450; 80048; 84703; 96361; 96374; 96375; 99283; J7030; A4216

== ENCOUNTER 2023-03-07 10:59 | Emergency (ER) | payer OTHER, MEDICAID, SELFPAY ==
[2023-03-07 11:00] VITALS: BP 138/69; PULSE 103; RESP 18; TEMP 36.7; O2SAT 98; BMI 34.7
--- NOTE | 2023-03-07 11:30 | CT_ITS ---
STUDY: CT ABDOMEN AND PELVIS WITH CONTRAST REASON FOR EXAM: Female, 27 years old. Right sided abd pain RADIATION DOSAGE (If Supplied By Facility): CTDIvol = ( 14.69 ) mGy, DLP = ( 1218.46 ) mGycm TECHNIQUE: Transaxial images were obtained from the dome of the diaphragm to the symphysis pubis without oral contrast. IV 100mL Isovue-300 was administered. Sagittal and coronal images were reconstructed. Individualized dose optimization techniques were used for this CT. COMPARISON: None. FINDINGS: The visualized lung bases are unremarkable. The visualized portions of the heart are within normal limits. Normal liver. Normal gallbladder and extrahepatic biliary system. There are multiple benign calcified granulomata of the spleen. Normal pancreas. Normal bilateral adrenal glands. Normal right kidney. Normal left kidney. Normal visualized stomach. Normal small intestine. Normal colon. The appendix is visualized and appears normal. Normal abdominal aorta. Normal inferior vena cava. Normal retroperitoneum. Normal urinary bladder. Small focus are seen in both ovaries. There is a small umbilical hernia containing fat. Normal osseous structures. CT/Abdomen/Pelvis W IV Cont ONLY IMPRESSION: Normal enhanced CT of the abdomen and pelvis. Electronically Signed: William Ga MD at 14:30 EDT ,
[2023-03-07] MEDS: Ondansetron 4 MG/2 ML Vial IV (11:43)
[2023-03-07] MEDS: Ketorolac 15 MG/ML Vial IV (11:43)
[2023-03-07] MEDS: 0.9% Normal Saline 1,000 ML 1000 ML IV (11:43)
--- NOTE | 2023-03-07 12:06 | ED.VIS.GI ---
HPI HPI - GI History of Present Illness Chief Complaint: Abd Pain Informant: patient Narrative Narrative: Patient is a 27-year-old female with history of migraines, anxiety, depression and GERD presenting with right sided abdominal and back pain. Patient states that he started having stomach and back pain on the right side about 3 days ago. He has had associated sweats, nausea, vomiting and now she is only vomiting up fold. States has not really been able to eat or drink anything. She states that she did finish course of antibiotics about 3 days ago for strep. She notes that she has had strep throat monthly this year. She has been referred to ENT. She does note her urine has been darker and she has had urgency associated with it but denies any dysuria. She has remote history of UTIs as a child but states they resolved when she stopped taking baths. Her father is a history of kidney stone the patient states she does drink a lot of energy drinks. In addition she states that when her family had her gallbladder and appendix removed. She did have diarrhea last week associated with antibiotics but since resolved. Now she states she has not had a bowel movement because of decreased oral intake. In addition to all the symptoms she is also having a worsening headache. He states this is triggered a migraine. It is frontal in nature. There are some mild photophobia. She has not had an objective fever. Patient came in for further evaluation. No other complaints or concerns at this time. [facility] Medical History Anxiety Asthma Depression GERD (gastroesophageal reflux disease) Smoker Substance abuse Home Medications ondansetron 4 mg disintegrating tablet 4 mg PO Q6H PRN nausea and vomiting #20 tabs 03/07/23 [Rx Last Taken Unknown] pseudoephed 60 mg-DM 20 mg-guaifen 200 mg-acetaminophen 325 mg tablet 1 tab PO Q4H PRN flu symptoms #20 tabs 03/07/23 [Rx Last Taken Unknown] Allergy/AdvReac Type Severity Reaction Status Date / Time PENICILLINS Allergy Mild Abd Uncoded 03/07/23 11:02 cramps/diarrhea Social History Smoking Status: Current every day smoker tobacco type: cigarettes ROS ROS ED Constitutional Constitutional ED: Reports chills and sweats; Denies fever(s) ENT ENT ED: Reports sore throat; Denies ear pain Cardiovascular Cardiovascular: Denies chest pain Respiratory/Chest Respiratory/Chest: Denies cough or dyspnea Gastrointestinal Gastrointestinal: Reports abdominal pain, nausea and vomiting; Denies constipation or diarrhea Genitourinary Genitourinary ED: Reports other Details: urgency, dark urine ; Denies dysuria Musculoskeletal Musculoskeletal: Reports back pain Integumentary Denies rash Neurologic Neurologic: Reports headache(s); Denies paresthesias or weakness Psychiatric Psychiatric: Reports anxiety Hematologic/Lymphatic Hematologic/Lymphatic: Denies easy bleeding or easy bruising EXAM Physical Exam Const Vital Signs: 03/07/23 11:00 03/07/23 14:57 Temperature 98.1 F Temperature Source Temporal Pulse Rate 103 H Respiratory Rate 18 Blood Pressure 138/69 H 136/74 H Blood Pressure Mean 92 94 Pulse Ox 98 Oxygen Delivery Method Room Air Positive well nourished and well developed General Appearance ED: well developed and NAD HEENT Reports TM's clear and moist mucous membranes HEENT Narrative: No significant erythema of the oropharynx. No tonsillar exudates or edema appreciated. Uvula is midline. Normal phonation. normocephalic and atraumatic Tympanic Membrane ED: Yes TM's clear Eyes PERRL and EOMs intact bilaterally Neck supple Neck Narrative: No nuchal rigidity Resp normal respiratory effort and clear to auscultation bilaterally Cardio regular rhythm and no murmurs Rate: tachycardic GI Auscultation: hypoactive bowel sounds Palpation: soft and tender McBurney's point Back/Spine General Back: CVA tenderness right Neuro Sensorium / Orientation: alert, oriented to person, oriented to place and oriented to time Motor Exam: Negative for general weakness Psych mental status grossly normal and thought process normal Skin no wounds General Skin Exam: Negative for jaundice MDM MDM MDM Narrative Medical decision making narrative: Patient evaluated for 3 days of right flank, right-sided abdominal pain, nausea, vomiting and now headache. Differential includes renal pathology such as obstructing kidney stone, pyelonephritis and she does have pain at McBurney's point so also concern for appendicitis. Suspect her headache is related to possible dehydration/exacerbation of her chronic migraines. Patient does not have any meningeal signs. I do not think she requires any neuroimaging at this time. She does not have nuchal rigidity or any neurologic deficits. Patient is given IV fluids, Toradol and Zofran initially for symptom control. Vital signs are significant for mild tachycardia with a heart rate of 103. Patient's last menstrual period was this week and she is not concerned for . Urine is pending at this time. Patient does have a mild leukocytosis of 12.3. Lab work otherwise largely normal. No AMY or signs of significant dehydration. Urinalysis does show 15 protein, 50 ketones, 50 occult blood with 1+ bacteria and negative nitrites as well as no red blood cells. CT of the abdomen pelvis does not show any acute process to explain her symptoms. On repeat evaluation patient was resting and states she was feeling better and finally able to rest. She states she is does still have a headache. Patient goes on to tell me that the last time she felt this way she had COVID and would like a COVID test. This is ordered and she is also given a dose of Sudafed as well as a sumatriptan for further symptom control. Patient is congested when I repeat evaluate her and I wonder if some of her headache could be sinus in nature. Patient be discharged home. She is counseled on return precautions. Is given prescription for Zofran as well as a decongestant for further symptom control. Is given referral for ENT for her recurrent episodes of strep throat (she just completed course antibiotics and does not have significant tonsillar edema/exudate and is afebrile with flank pain is a presenting symptom I do not think she requires a repeat strep test at this time). Patient is also given referral to her primary care doctor she has been receiving majority of her care through urgent cares. Is counseled that she does have a mild leukocytosis which is nonspecific. It could be associated with dehydration or vomiting however. Lab Data Labs: Laboratory Results - last 24 hr 03/07/23 03/07/23 11:10 13:38 WBC 12.3 H RBC 4.50 Hgb 15.0 Hct 43.0 MCV 95.6 MCH 33.3 H MCHC 34.9 RDW Std Deviation 44.8 H RDW Coeff of [place] 12.7 Plt Count 250 MPV 10.4 Immature Gran % (Auto) 0.500 Neut % (Auto) 73.2 H Lymph % (Auto) 15.3 L [place] % (Auto) 10.7 H Eos % (Auto) 0.1 Baso % (Auto) 0.2 Absolute Neuts (auto) 9.0 H Absolute Lymphs (auto) 1.87 Nucleated RBC % 0 Sodium 136 Potassium 3.4 L Chloride 104 Carbon Dioxide 29.0 Anion Gap 3 L BUN 7 Creatinine 0.79 Estim Creat Clear Calc 101.91 Est GFR (MDRD) Af Amer 114 Est GFR (MDRD) Non-Af 94 BUN/Creatinine Ratio 8.9 L Glucose 94 Calcium 9.0 Total Bilirubin 0.60 AST 11 L ALT 15 Alkaline Phosphatase 88 Total Protein 8.6 H Albumin 4.1 Globulin 4.5 H Albumin/Globulin Ratio 0.9 Lipase 21 Urine Color Yellow Urine Clarity Sl. Cloudy Urine pH 6.0 Ur Specific [place] 1.020 Urine Protein 15 H Urine Glucose (UA) Normal Urine Ketones 50 H Urine Occult Blood 50 H Urine Nitrite Negative Urine Bilirubin Negative Urine Urobilinogen 4 H Ur Leukocyte Esterase 25 H Urine RBC 0 SEEN Urine WBC 0 SEEN Ur Squamous Epith Cells 0-5 SEEN Urine Bacteria 1+ Urine Mucus 0 SEEN Urine Test Negative Radiography Diagnostic Testing: Clinical Impression(s) from Imaging Studies Abdomen/Pelvis CT 03/07/23 11:30 IMPRESSION: Normal enhanced CT of the abdomen and pelvis. Electronically Signed: William Ga MD at 14:30 EDT , Discharge Plan Triage Chief Complaint: Abd Pain ED Provider: Melissa Guerrero Dx/Rx/DC Orders Clinical Impression: Acute right flank pain, Headache, Nausea and vomiting Instructions: ED Flank Pain, Uncertain Cause, ED Pain, Acute, Uncertain Cause, ED Vomiting (Adult) Prescriptions: New ondansetron 4 mg tablet,disintegrating 4 mg PO Q6H PRN (Reason: nausea and vomiting) Qty: 20 0RF [id number]-acetaminophen [id number] mg tablet 1 tab PO Q4H PRN (Reason: flu symptoms) Qty: 20 0RF Primary Care Provider: Care Physician,No Primary Referrals: Haris Anne MD [Med Staff - Active Staff] - As soon as possible Nigel Shah MD [Med Staff - Protective Clothing Issuer] - As Needed Care Physician,No Primary [Primary Care Provider] - Activity Restrictions/Additional Instructions: Your work-up was largely normal today with no signs of a kidney stone, kidney infection, acute appendicitis or severe dehydration. Your white blood cell count was mildly elevated which is nonspecific. There does not appear to be a bacterial infection requiring antibiotics at this time. Your urine test was negative. As we discussed it is possible you have a mild viral syndrome that is causing your symptoms. If your symptoms progress or worsen please return to the emergency room. In regards to your frequent episodes of strep throat this year please follow-up with ENT and you been given referral. Disposition Disposition: Home, Self Care Discharge Date/Time: 03/07/23 15:47
[2023-03-07 12:14] LABS: ALB/GLOB Ratio 0.9 RATIO (0.9-2.4); AST(SGOT) 11 U/L (15-37); Alanine Aminotransfer ALT/SGPT 15 U/L (13-56); Albumin, Serum 4.1 g/dL (3.2-5.0); Alkaline Phosphatase 88 U/L (45-117); Anion Gap 3 (5-15); BUN 7 mg/dL (7-18); BUN/Creat Ratio 8.9 RATIO (10-20); Chloride 104 mmol/L (98-107); Creatinine, Serum 0.79 mg/dL (0.55-1.02); EST Glomerular Filtration Rate 94 mL/min (>60); Est Glom Filt Rate - Afr Amer 114 mL/min (>60); Estimated Creatinine Clearance 101.91 ml/min; Globulin 4.5 g/dL (2.2-4.2); Glucose 94 mg/dL (74-106); Lipase 21 U/L (13-75); Potassium 3.4 mmol/L (3.5-5.1); Protein, Total 8.6 g/dL (6.4-8.2); Sodium Level 136 mmol/L (136-145)
[2023-03-07 13:35] LABS: Absolute Lymphocyte Count 1.87 X10^3/uL (0.83-4.51); Basophil# 0.03 X10^3/uL; Basophil% 0.2 % (0-1); Eosinophil# 0.01 X10^3/uL; Eosinophils% 0.1 % (0-5); Lymphocyte # 1.87 X10^3/ul (0.83-4.51); Lymphocyte % 15.3 % (19-41); Mean Corp Hgb Conc 34.9 g/dL (32-36); Mean Corpuscular Hgb 33.3 pg (27.0-32.0); Mean Corpuscular Volume 95.6 fL (81-99); Mean Platelet Vol. 10.4 fl (6.2-12.0); Monocyte# 1.31 X10^3/uL; Monocyte% 10.7 % (0-10); NRBC Flagged by Analyzer 0 % (0-5); Neutrophil # 8.97 X10^3/uL (2.7-7.7); Neutrophil % 73.2 % (47-70); Platelet Count 250 K/mm3 (150-450); RBC Distribution Width CV 12.7 % (11.6-14.6); RBC Distribution Width SD 44.8 fl (35.1-43.9); White Blood Count 12.3 K/mm3 (4.4-11.0)
[2023-03-07 13:43] LABS: Mucous, Urine 0 SEEN /hpf (<or=2+); Red Blood Cells-Urine 0 SEEN /hpf (0-5); White Blood Cells 0 SEEN /hpf (0-5)
[2023-03-07 13:45] LABS: Color, Urine Yellow (Yellow); Glucose, Dipstick Normal (Normal); Ketone-Dipstick 50 mg/dl (Negative); Leukocyte Esterase-Dipstick 25 /ul (Negative); Nitrite-Dipstick Negative (Negative); Occult Blood-Urine 50 /ul (Negative); Protein-Dipstick 15 mg/dl (Negative); Urine Bilirubin Dipstick Negative (Negative); Urine Clarity Sl. Cloudy (Clear); Urine Urobilinogen 4 mg/dl (Normal)
[2023-03-07 13:54] LABS: Bacteria 1+ /hpf (None Seen); Squamous Epithelial Cells - UA 0-5 SEEN /hpf (5-10)
[2023-03-07 13:55] LABS: Internal QC Validated? YES +Cl - CLEAR BKGD; Pregnancy, Urine Negative Negative
[2023-03-07 14:57] VITALS: BP 136/74
[2023-03-07] MEDS: SUMAtriptan 6 MG/0.5 ML Vial SC (14:59)
== END 2023-03-07 15:47 | disposition home or self-care (01) ==
PROVIDERS: Emergency Provider Emergency Medicine; Visit Provider Emergency Medicine
DX: R10.9 Unspecified abdominal pain (principal); R11.2 Nausea with vomiting, unspecified; R51.9 Headache, unspecified; F17.210 Nicotine dependence, cigarettes, uncomplicated
CPT/HCPCS: 74177; 80053; 81001; 81025; 83690; 85025; 87811; 96361; 96372; 96374; 96375; 99283; J7030; Q9967; A4216; J2405; J3030

== ENCOUNTER → 2023-03-09 | Outpatient (CLI) | payer OTHER, MEDICAID, SELFPAY | END | disposition home or self-care (01) | PROVIDERS: Referring Provider Otolaryngology; Visit Provider Otolaryngology | DX: J02.9 Acute pharyngitis, unspecified (principal) | CPT/HCPCS: 87070; 87077; 87186 ==

== ENCOUNTER 2024-03-27 21:39 | Emergency (ER) | payer MEDICAID, SELFPAY ==
[2024-03-27 21:40] VITALS: BP 132/60; PULSE 79; RESP 16; TEMP 36.1; O2SAT 98; BMI 29.5
--- NOTE | 2024-03-27 22:04 | EDS_ITS ---
HPI History of Present Illness Chief Complaint: Headache Informant: patient Narrative Narrative: Nontraumatic headache since 3 days. Right occipital progressing to the left side. Aura. Nausea and vomiting Sunday and Sunday. Photophobia. No fevers. Last use of Aleve at 11 AM. Allergy to penicillin. Prior similar symptoms: Yes [facility] Medical History Marijuana smoker Substance abuse Anxiety Depression GERD (gastroesophageal reflux disease) Smoker Asthma Home Medications ?Medication ?Instructions ?Recorded ?Last Taken ?Type loratadine 10 mg tablet (Claritin) 10 mg PO DAILY 03/27/24 Unknown History Allergy/AdvReac Type Severity Reaction Status Date / Time Penicillins AdvReac Intermediate Abd Verified 03/27/24 21:40 cramps/diarrhea Social History Smoking Status: Current every day smoker tobacco type: cigarettes ROS ROS ED Constitutional Constitutional ED: Denies chills, fever(s) or sweats Eyes Eyes: Denies change in vision ENT ENT ED: Denies dysphagia or sore throat Cardiovascular Cardiovascular: Denies chest pain, leg edema, palpitations or racing heartbeat Respiratory/Chest Respiratory/Chest: Denies cough, dyspnea or dyspnea on exertion Gastrointestinal Gastrointestinal: Reports nausea and vomiting; Denies abdominal pain or diarrhea Genitourinary Genitourinary ED: Denies dysuria, hematuria or urinary frequency Musculoskeletal Musculoskeletal: Denies back pain, extremity pain or neck pain Integumentary Denies rash or wounds Neurologic Neurologic: Reports headache(s); Denies paresthesias or weakness EXAM Physical Exam Const Vital Signs: 03/27/24 21:40 03/27/24 23:39 03/28/24 00:02 Temperature 97 F L 97.2 F L Temperature Source Temporal Pulse Rate 79 69 68 Respiratory Rate 16 16 Blood Pressure 132/60 H 119/78 Blood Pressure Mean 84 91 Pulse Ox 98 99 Oxygen Delivery Method Room Air Positive well nourished and well developed General Appearance ED: well developed and NAD HEENT Reports moist mucous membranes normocephalic and atraumatic Eyes EOMs intact bilaterally and conjunctivae normal General Eye ED: Yes normal appearance of both eyes Neck no lymphadenopathy, supple and no meningeal signs General: Negative for tenderness Chest Wall Chest: Negative for tenderness Resp normal respiratory effort and normal air movement Effort and Inspection: symmetric chest movement; Negative for respiratory distress Cardio regular rate, regular rhythm and no murmurs Peripheral Pulses: pulses 2+ throughout GI normal to inspection, nondistended, normoactive bowel sounds and non-tender Palpation: Negative for guarding or rebound tenderness present Back/Spine no CVA tenderness and no thoracic nor lumbar tenderness Extremity normal to inspection General Extremety ED: Negative for edema or tenderness General Extremity: Negative for edema Neuro oriented x3, CN's II-XII intact bilaterally and no sensory deficits noted Sensorium / Orientation: awake and alert Skin no rashes or lesions noted and no wounds MDM MDM MDM Narrative Medical decision making narrative: Interventions / MDM: Differential diagnosis: Migraine headache Diagnosis considered but do not suspect: No clinical meningitis My EKG interpretation: N/A Imaging independently reviewed and interpreted by myself: N/A External documents reviewed: CT brain 2021 negative. Test considered but not ordered:N/A ED course: No focal deficits no meningismus findings. Vital stable. IV established for fluids Reglan Benadryl. Will reevaluate. 2315: Slight improvement headache. Will add Toradol. 2355: Clinically feeling much better after Toradol. She had a negative CT brain [address] brain 2 months ago at [facility] with her dizziness. Fairly new headache for patient. Will discharge outpatient with neurology. Work note provided. All questions were answered. Re-evaluation: stable Disposition discussed with patient/family/significant other: Patient Case discussed with consulting clinician: N/A This note was generated with eziCONEX dictation software. It may contain incorrect words, spelling, and punctuation that were not noted in checking the note before signing. Discharge Plan Triage Chief Complaint: Headache ED Provider: Kyler Diaz Dx/Rx/DC Orders Clinical Impression: Migraine headache, Aura Instructions: ED, Migraine (Classical) Prescriptions: No Action loratadine [Claritin] 10 mg tablet 10 mg PO DAILY Stand Alone Forms: ED Work / School Excuse Primary Care Provider: Care Physician,No Primary Referrals: Kali Tucker MD [Non-Staff -Ordering Privileges] - 1-2 Weeks Care Physician,No Primary [Primary Care Provider] - Print Language: Kazakh Disposition Disposition: Home, Self Care Discharge Date/Time: 03/28/24 00:04
[2024-03-27 23:39] VITALS: PULSE 69
[2024-03-28 00:02] VITALS: BP 119/78; PULSE 68; RESP 16; TEMP 36.2; O2SAT 99
== END 2024-03-28 00:04 | disposition home or self-care (01) ==
PROVIDERS: Emergency Provider Emergency Medicine; Visit Provider Emergency Medicine
DX: G43.109 Migraine with aura, not intractable, without status migrainosus (principal); F17.210 Nicotine dependence, cigarettes, uncomplicated
CPT/HCPCS: 96361; 96374; 96375; 99283; J7030; A4216

== ENCOUNTER 2024-08-01 10:47 | Emergency (ER) | payer OTHER, SELFPAY ==
[2024-08-01 10:47] VITALS: BP 139/94; PULSE 73; RESP 14; TEMP 35.7; O2SAT 100; BMI 26.4
--- NOTE | 2024-08-01 11:10 | EDS_ITS ---
HPI History of Present Illness Chief Complaint: Lower Extremity Injury Narrative Narrative: Patient is a 29-year-old female with past medical history of anxiety, depression, substance abuse, asthma who presents to the emergency department with a chief complaint of left leg pain. Patient states that she was at work earlier today when a pain of mac & cheese started to fall she states that she tried to use her leg to catch it and notes that she has some bruising on her inner thigh. States that the mac & cheese did stick to her pant leg and noted that she quickly got this off and states that she has some redness to the lateral aspect of her leg. Patient states that her tetanus shot is up-to-date. Patient notes that the only reason she is here as it was requested by her boss to be evaluated in the emergency department. Patient states that she has been ambulating normally without any difficulty. [facility] Medical History Marijuana smoker Substance abuse Anxiety Depression GERD (gastroesophageal reflux disease) Smoker Asthma Home Medications ?Medication ?Instructions ?Recorded ?Last Taken ?Type loratadine 10 mg tablet (Claritin) 10 mg PO DAILY 03/27/24 Unknown History Allergy/AdvReac Type Severity Reaction Status Date / Time Penicillins AdvReac Intermediate Abd Verified 08/01/24 10:48 cramps/diarrhea Social History Smoking Status: Current every day smoker tobacco type: cigarettes ROS ROS ED ROS Narrative constitutional: Denies any fevers, chills, headaches Abdomen: Denies abdominal pain nausea vomit diarrhea Neurological: Denies any numbness, weakness, tingling Musculoskeletal: Complains of left leg pain as noted above Skin: Complains of left leg redness as noted above EXAM Physical Exam Narrative Exam Narrative: General: Patient lying in bed rest comfortably did not appear to be in acute distress Head: Atraumatic, normocephalic Eyes: PERRL body, EOMI bladder, no conjunctival injection noted Neck: Soft, supple, trach midline Cardiovascular: Regular rate and rhythm Respiratory: Clear to auscultation bilaterally Abdomen: Soft, nondistended, no no tenderness palpation Extremities: +5/5 strength noted in the bilateral upper and lower extremities, DP pulses +2/4 in the bilateral lower extremities Neurological: Patient follow commands knew that she was at [facility] years 2023 sensation grossly intact in the bilateral lower extremities Skin: Patient has a superficial burn noted to the lateral aspect of her left thigh. No sloughing of the skin no petechia no purpura noted. Patient has ecchymosis noted to the medial aspect of her left thigh. Const Vital Signs: 08/01/24 10:47 Temperature 96.3 F L Temperature Source Temporal Pulse Rate 73 Respiratory Rate 14 Blood Pressure 139/94 H Blood Pressure Mean 109 Pulse Ox 100 Oxygen Delivery Method Room Air MDM MDM MDM Narrative Medical decision making narrative: Patient is a 29-year-old female who presented to the emerged part with a chief complaint of left lower extremity injury while at work. Patient once again is able to ambulate here in the emergency department any difficulty I have low suspicion for fracture. Patient does have evidence of a superficial burn from the mac & cheese however no concerns for infection at this point in time no sloughing of the skin noted to suggest a deeper burn. She was given follow-up for Workmen's Comp. She was encouraged to follow-up with her primary care physician as well. She is encouraged return with worsening symptoms or other concerns. Once again her tetanus shot is up-to-date already. Patient would like to go home all question concerns answered she was discharged home in stable condition. Discharge Plan Triage Chief Complaint: Lower Extremity Injury ED Provider: Pa Zuluaga Dx/Rx/DC Orders Clinical Impression: Superficial burn of left thigh Prescriptions: No Action loratadine [Claritin] 10 mg tablet 10 mg PO DAILY Primary Care Provider: Care Physician,No Primary Referrals: Care Physician,No Primary [Primary Care Provider] - Corporate,Care [Group of Physicians] - Activity Restrictions/Additional Instructions: Keep a close eye on the burn on the lateral aspect of the leg. If there is surrounding redness, concerns for infection you need to return to the emergency department. Follow-up with the corporate care that you referred to for Workmen's Comp. Return with any other concerns Print Language: Turkmen Disposition Disposition: Home, Self Care
== END 2024-08-01 11:54 | disposition home or self-care (01) ==
PROVIDERS: Emergency Provider Emergency Medicine; Visit Provider Emergency Medicine
DX: T24.012A Burn of unspecified degree of left thigh, initial encounter (principal); F41.9 Anxiety disorder, unspecified; K21.9 Gastro-esophageal reflux disease without esophagitis; F32.A Depression, unspecified; F17.210 Nicotine dependence, cigarettes, uncomplicated; S70.12XA Contusion of left thigh, initial encounter; X10.1XXA Contact with hot food, initial encounter; Y99.0 Civilian activity done for income or pay
CPT/HCPCS: 99282

== ENCOUNTER 2024-10-04 20:08 | Emergency (ER) | payer SELFPAY ==
[2024-10-04 20:09] VITALS: BP 125/80; PULSE 100; RESP 20; TEMP 36.2; O2SAT 100; BMI 25.0
--- NOTE | 2024-10-04 20:21 | EX.ED.DYSGE1 ---
HPI History of Present Illness Chief Complaint: Allergic Reaction [facility] Medical History Marijuana smoker Substance abuse Anxiety Depression GERD (gastroesophageal reflux disease) Smoker Asthma Home Medications ?Medication ?Instructions ?Recorded ?Last Taken ?Type loratadine 10 mg tablet (Claritin) 10 mg PO DAILY 03/27/24 Unknown History epinephrine 0.3 mg/0.3 mL 0.3 mg (0.3 mL) IM Q10M PRN PRN 10/04/24 Unknown Rx injection, auto-injector (EpiPen) anaphylaxis 1 day #2 ea prednisone 20 mg tablet 20 mg PO DAILY 5 days #5 tabs 10/04/24 Unknown Rx Allergy/AdvReac Type Severity Reaction Status Date / Time Penicillins AdvReac Intermediate Abd Verified 10/04/24 20:08 cramps/diarrhea Social History Smoking Status: Current every day smoker tobacco type: cigarettes EXAM Physical Exam Const Vital Signs: 10/04/24 20:09 Temperature 97.2 F L Temperature Source Temporal Pulse Rate 100 Respiratory Rate 20 H Blood Pressure 125/80 H Blood Pressure Mean 95 Pulse Ox 100 Oxygen Delivery Method Room Air MDM MDM MDM Narrative Medical decision making narrative: HISTORY OF PRESENT ILLNESS: 29-year-old female comes in with concern for itchiness to her face. States this began this morning. She thought she was having allergic reaction. She took 3 Benadryl this morning with some relief. She notes she started itching again. Does not has itching to bilateral arms denies wheezing at this time. She noted shortness of breath earlier but notes this has resolved. Denies difficulty swallowing, throat or chest tightness. REVIEW OF SYSTEMS: Pertinent positives: Itching and blotchiness to face Pertinent negatives: Tongue swelling PHYSICAL EXAM: Nursing triage notes reviewed, Vital signs reviewed Constitutional: please see mdm HENT: MMM, uvula midline, patent oropharynx, no pooling secretions Eyes: Pupils equal round and reactive to light, Extraocular muscles intact Neck: No stridor, no JVD, full neck ROM Lungs: Clear to auscultation, No wheezing or rales. No increased work of breathing, no conversational dyspnea, no accessory muscle use, no nasal flaring. No respiratory distress noted Heart: Regular rate and rhythm, No murmurs, No rubs and No gallops, 2+ distal pulses (radial, femoral, posterior tibial) in all extremities Abdomen: Soft, there is no tenderness, rigidity, rebound or guarding, no obvious peritoneal signs, no palpable pulsatile abdominal masses, no auscultated abdominal bruit : No CVAT Extremities: No edema Neuro: No new focal neurological deficits, cranial nerves II through XII intact, 5/5 strength in all present extremities. Intact sensation to light touch in all present extremities, 2+ reflexes bilateral patella tendons. Skin: Confluent erythema noted to the face, trapezius muscles, neck. MEDICAL DECISION MAKING: Chief Complaint: Itching, allergic reaction allergic to penicillin MDM Narrative: Patient was hemodynamically stable, afebrile and nontoxic-appearing. Exam with confluent erythema noted to face neck and trapezius musculature. There is no urticaria noted. There is no crepitus, fluctuance or induration. There is no drainage noted. Exam more consistent with a contact dermatitis rather than urticaria or hives. Will treat empirically with histamine blockers and steroids. Will prescribe an EpiPen. Strict return precautions were discussed. There is no sign of anaphylaxis as there were not multiple organ systems involved on my exam. Will prescribe an EpiPen just in case patient does have a more severe allergic reaction in future. Strict return precautions were discussed. The patient and/or family, caregivers express understanding. The patient and/or family, caregivers agrees with the plan. Shared decision making: I will have a discussion with the patient and or visitors regarding risk/benefits of further testing or admission. They will be made aware of of the risk/benefits inherent in this decision they will be given the opportunity to voice understanding. Total critical care time today provided was at least 0 minutes. This excludes separately billable procedures. Critical care time (if documented) is secondary to the patient having high probability of clinically significant/life threatening deterioration in the patient's condition which required my urgent intervention. Impression: 1. Contact dermatitis Dispo: Discharge home This note was generated with Potential dictation software. It may contain incorrect words, spelling, and punctuation that were not noted in review of the chart prior to signing. Discharge Plan Triage Chief Complaint: Allergic Reaction ED Provider: Jair Carvalho Dx/Rx/DC Orders Clinical Impression: Contact dermatitis Instructions: ED Contact Dermatitis Prescriptions: New epinephrine [EpiPen] 0.3 mg/0.3 mL auto-injector 0.3 mg IM Q10M PRN PRN (Reason: anaphylaxis) 1 Days Qty: 2 0RF Rx Instructions: for 2 doses prednisone 20 mg tablet 20 mg PO DAILY 5 Days Qty: 5 0RF No Action loratadine [Claritin] 10 mg tablet 10 mg PO DAILY Stand Alone Forms: ED Work / School Excuse Primary Care Provider: Care Physician,No Primary Referrals: Severino Esquivel MD [Med Staff - Active Staff] - Activity Restrictions/Additional Instructions: Thank you for trusting us with your care today! Your presentation is most consistent with likely contact dermatitis. Will treat empirically for allergic reaction with antihistamines and steroids. Please take Pepcid and Claritin/Zyrtec for the next 5 days as well. These are antihistamines and they will help with itching and your symptoms. They can be obtained [id number]. An EpiPen has been prescribed. Please use if you feel your throat is closing after being exposed to potential allergen Please take Tylenol (2 pills, 650 mg), ibuprofen (2 pills, 400 mg) every 6 hours as needed for pain and fever control. Please return to the emergency department if your symptoms change or worsen. Specifically develop wheezing, vomiting, difficulty swallowing, chest tightness or neck tightness, difficulty breathing or if you lose consciousness Please follow with your primary care physician for further outpatient evaluation and management. Print Language: Greenlandic Disposition Disposition: Home, Self Care
[2024-10-04] MEDS: predniSONE 20 MG Tablet PO (20:39)
[2024-10-04] MEDS: Famotidine 20 MG Tablet PO (20:39)
[2024-10-04] MEDS: Loratadine 10 MG Tablet PO (20:39)
[2024-10-04 21:07] VITALS: BP 122/86; PULSE 92; RESP 18; TEMP 36.7; O2SAT 99
== END 2024-10-04 21:08 | disposition home or self-care (01) ==
LOC: ED 20:49
PROVIDERS: Emergency Provider Emergency Medicine; Visit Provider Emergency Medicine
DX: L25.9 Unspecified contact dermatitis, unspecified cause (principal); J45.909 Unspecified asthma, uncomplicated; K21.9 Gastro-esophageal reflux disease without esophagitis; F17.210 Nicotine dependence, cigarettes, uncomplicated; Z79.899 Other long term (current) drug therapy
CPT/HCPCS: 99283